=== PATIENT | female | born 1950 | race Caucasian/White ===

== ENCOUNTER 2018-11-26 19:48 | Inpatient (IN) | payer BC ==
[2018-11-26] MEDS ORDERED: ALBUTEROL (0.5% CONCENTRATED) 2.5 MG/0.5 ML VIAL.NEB INH ONE (20:23)
[2018-11-26] MEDS ORDERED: IPRATROPIUM/ALBUTEROL (0.5MG/3MG) NEB INH ONE (20:24)
[2018-11-26] MEDS ORDERED: METHYLPREDNISOLONE PF 125MG/VIAL IVP ONE (20:26)
[2018-11-26 20:39] LABS: ARTERIAL BLD GAS O2 SATURATION 93.6 % (95-98); ARTERIAL BLOOD GAS BASE EXCESS 1.6 mmol/L (-2 - 3); ARTERIAL BLOOD GAS HCO3 28.6 mmol/L (18-23); ARTERIAL BLOOD GAS PCO2 60.4 mmHg (35-48); CARBOXYHEMOGLOBIN 5.6 % (0-1.5); HEMATOCRIT 38.4 % (35.0-47.0); HEMOGLOBIN 11.6 gm/dl (11.6-16.0); MEAN CELL VOLUME 99.2 fl (81-97); MEAN CORPUSCULAR HGB CONC 30.2 g/dl (32-36); PLATELET COUNT 293 K/uL (130-400); RED BLOOD COUNT 3.87 M/uL (3.80-5.40); RED CELL DISTRIBUTION WIDTH 17.9 % (11.5-14.5); WHITE BLOOD COUNT W/O DIFF 14.4 K/uL (4.2-12.2)
[2018-11-26 20:42] LABS: ALLEN TEST PASS
[2018-11-26 20:53] LABS: BLOOD UREA NITROGEN 13 mg/dL (8-23); CREATININE 0.9 mg/dL (0.5-0.9); EST GLOMERULAR FILTRATION RATE > 60 mL/min
[2018-11-26 20:54] LABS: TOTAL PROTEIN 8.4 g/dL (6.6-8.7)
[2018-11-26 20:56] LABS: GLUCOSE,RANDOM 211 mg/dL (74-109)
[2018-11-26 20:58] LABS: ALT/SGPT 9 U/L (<33); AST/SGOT 12 U/L (10.0-35.0)
[2018-11-26 20:59] LABS: ALB/GLOB RATIO 0.8 (1.1-1.8); ALBUMIN 3.8 g/dL (4.0-5.0); ALKALINE PHOSPHATASE 72 U/L (35-104)
[2018-11-26] MEDS ORDERED: ACETAMINOPHEN 1,000 MG/100 ML BTL IVPB ONE (22:10)
[2018-11-26 22:13] LABS: URINE APPEARANCE CLEAR; URINE BILIRUBIN NEGATIVE (NEGATIVE); URINE BLOOD NEGATIVE (NEGATIVE); URINE COLOR YELLOW; URINE GLUCOSE (UA) NEGATIVE (NEGATIVE); URINE KETONE NEGATIVE (NEGATIVE); URINE LEUKOCYTE ESTERASE NEGATIVE (NEGATIVE); URINE NITRITE NEGATIVE (NEGATIVE); URINE PROTEIN TRACE (NEGATIVE); URINE UROBILINOGEN 0.2 E.U./dL (0.20 - 1.00)
[2018-11-26] MEDS ORDERED: 0.9 % SODIUM CHLORIDE 1,000 ML BAG IV ONE (22:24)
[2018-11-26] MEDS ORDERED: AZITHROMYCIN 500 MG in 0.9 % SODIUM CHLORIDE 250ML 250 ML IVPB ONE (22:29)
[2018-11-26] MEDS ORDERED: CEFTRIAXONE 1GM/50ML BAG 1 GM/50 ML BAG IVPB ONE (22:30)
[2018-11-26 22:37] LABS: ARTERIAL BLOOD GAS BASE EXCESS 4.7 mmol/L (-2 - 3); ARTERIAL BLOOD GAS HCO3 30.4 mmol/L (18-23); ARTERIAL BLOOD GAS PCO2 55.1 mmHg (35-48); ARTERIAL BLOOD GAS pH 7.36 (7.35-7.45); CARBOXYHEMOGLOBIN 5.1 % (0-1.5); O2 HEMOGLOBIN 88.7 % vol (94-99)
[2018-11-26 22:38] LABS: ALLEN TEST PASS
--- NOTE | 2018-11-27 00:29 | Emergency Department Record ---
History of Present Illness - General Chief Complaint: Cough Stated Complaint: COUGH,CONFUSION Time Seen by Provider: 11/26/18 20:19 Source: Family Mode of Arrival: Ambulatory Limitations: Altered mental status - History of Present Illness Initial Comments: pt brought in by family because she has been acting confused since the day [employer]. she has a hx of ovarian ca and finished chemo and radiation 4 mos ago. she has been increasingly sob. pt has also had chills and shakes and been sleeping a lot. her sats aupon arrival were in the 70s. she does not wear O2. she still smokes Onset/Timin Severity: Severe Consistency: Constant, Getting worse Improves With: Nothing Known History Of: COPD Context: Recent illness Associated Symptoms: Cough - Related Data Home Medications Medication Instructions Recorded Confirmed Last Taken Alprazolam 1 tab PO BID PRN 11/26/18 11/26/18 Unknown Cyclobenzaprine HCl [Flexeril] 10 mg PO QHS 11/26/18 11/26/18 Unknown Fluoxetine HCl [Prozac] 40 mg PO DAILY 11/26/18 11/26/18 Unknown Ibuprofen [Ibu] 600 mg PO DAILY 11/26/18 11/26/18 Unknown Morphine Sulfate [Morphine Sulfate 60 mg PO BID 11/26/18 11/26/18 Unknown ER] Nifedipine [Nifedipine ER] 60 mg PO DAILY 11/26/18 11/26/18 Unknown Olanzapine 10 mg PO QHS 11/26/18 11/26/18 Unknown Oxycodone HCl/Acetaminophen 1 tab PO Q4H PRN 11/26/18 11/26/18 Unknown [Percocet 5mg/325mg] Quinapril HCl [Accupril] 40 mg PO DAILY 11/26/18 11/26/18 Unknown Trazodone HCl 300 mg PO QHS 11/26/18 11/26/18 Unknown Allergies Allergy/AdvReac Type Severity Reaction Status Date / Time No Known Drug Allergies Allergy Verified 11/26/18 20:01 Travel Screening - Travel/Exposure Within Last 30 Days Have you traveled within the last 30 days?: No - Travel Symptoms Symptom Screening: None Review of Systems Reviewed: No additional complaints except as noted below Constitutional: Reports: As per HPI, Chills, Fever, Weakness. Denies: Malaise, Night sweats, Weight change Eyes: Reports: As per HPI. Denies: Eye discharge, Eye pain, Photophobia, Vision change ENT: Reports: As per HPI, Congestion. Denies: Dental pain, Ear pain, Epistaxis , Hearing loss, Throat pain Respiratory: Reports: As per HPI, Cough, Dyspnea. Denies: Hemoptysis, Stridor, Wheezes Cardiovascular: Reports: As per HPI. Denies: Arrhythmia, Chest pain, Dyspnea on exertion, Edema, Murmurs, Orthopnea, Palpitations, Paroxysmal nocturnal dyspnea, Rheumatic Fever, Syncope Endocrine: Reports: As per HPI. Denies: Fatigue, Heat or cold intolerance, Polydipsia, Polyuria Gastrointestinal: Reports: As per HPI. Denies: Abdominal pain, Constipation, Diarrhea, Hematemesis, Hematochezia, Melena, Nausea, Vomiting Genitourinary: Reports: As per HPI. Denies: Abnormal menses, Discharge, Dyspareunia, Dysuria, Frequency, Hematuria, Incontinence, Retention, Urgency Musculoskeletal: Reports: As per HPI. Denies: Arthralgia, Back pain, Gout, Joint swelling, Myalgia, Neck pain Skin: Reports: As per HPI. Denies: Bruising, Change in color, Change in hair/ nails, Lesions, Pruritus, Rash Neurological: Reports: As per HPI, Confusion. Denies: Abnormal gait, Headache, Numbness, Paresthesias, Seizure, Tingling, Tremors, Vertigo, Weakness Psychiatric: Reports: As per HPI. Denies: Anxiety, Auditory hallucinations, Depression, Homicidal thoughts, Suicidal thoughts, Visual hallucinations Hematological/Lymphatic: Reports: As per HPI. Denies: Anemia, Blood Clots, Easy bleeding, Easy bruising, Swollen glands Past Medical History - SOCIAL HISTORY Smoking Status: Light tobacco smoker (<10/day) Alcohol Use: None Drug Use: None - RESPIRATORY Hx Respiratory Disorders: Yes Hx COPD: Yes - CARDIOVASCULAR Hx Cardio Disorders: Yes Hx Heart Attack: Yes - NEURO Hx Neuro Disorders: No - GI Hx GI Disorders: Yes Hx Reflux: Yes - Hx Genitourinary Disorders: No - ENDOCRINE Hx Endocrine Disorders: No - MUSCULOSKELETAL Hx Musculoskeletal Disorders: Yes - PSYCH Hx Psych Problems: Yes Hx Anxiety: Yes Hx Depression: Yes - HEMATOLOGY/ONCOLOGY Hx Hematology/Oncology Disorders: Yes Hx Cancer: Yes (Ovarian Cancer) Hx Chemotherapy: Yes (08/2018) Hx Radiation Therapy: Yes (08/2018) Family Medical History Any Significant Family History?: Yes Hx Cancer: Father, Brother/Sister Hx Diabetes: Brother/Sister Physical Exam - General General Appearance: Alert, Cooperative, Severe distress, Other (confused) - Head Head exam: Normal inspection - Eye Eye exam: Normal appearance, PERRL, EOMI Pupils: Normal accommodation - ENT ENT exam: Normal exam, Mucous membranes dry, Normal external ear exam, Normal orophraynx Ear exam: Normal external inspection. negative: External canal tenderness Nasal Exam: Normal inspection. negative: Discharge, Sinus tenderness Mouth exam: Normal external inspection, Tongue normal Teeth exam: Normal inspection. negative: Dental caries Throat exam: Normal inspection. negative: Tonsillar erythema, Tonsillar exudate - Neck Neck exam: Normal inspection, Full ROM. negative: Tenderness - Respiratory Respiratory exam: Accessory muscle use, Rales, Respiratory distress, Rhonchi - Cardiovascular Cardiovascular Exam: Normal rhythm, Normal heart sounds, Tachycardia - GI/Abdominal GI/Abdominal exam: Soft, Normal bowel sounds. negative: Tenderness - Rectal Rectal exam: Deferred - exam: Deferred - Extremities Extremities exam: Normal inspection, Full ROM, Normal capillary refill. negative: Tenderness - Back Back exam: Reports: Normal inspection, Full ROM. Denies: Muscle spasm, Rash noted, Tenderness - Neurological Neurological exam: Altered. negative: Normal gait, Oriented X3 - Psychiatric Psychiatric exam: Normal affect, Normal mood - Skin Skin exam: Cyanosis, Dry, Intact Course Vital Signs 11/26/18 11/26/18 11/26/18 19:58 20:42 22:10 Temperature 98.3 F 102.1 F H Pulse Rate 111 H Pulse Rate [ 141 H Pulse Ox Probe] Respiratory 32 H 22 Rate Blood Pressure 92/66 [Left Arm] Pulse Ox 78 L 95 11/26/18 11/26/18 11/26/18 22:24 23:20 23:43 Temperature 97.7 F Pulse Rate Pulse Rate [ 76 65 77 Pulse Ox Probe] Respiratory 24 20 16 Rate Blood Pressure 82/48 99/49 111/63 [Left Arm] Pulse Ox 95 96 95 - Reevaluation(s) Reevaluation #1: 11/27/18 00:36 pt was immediately placed on bipap and given treatment. she gradually improved. her vitals improved. ct shows pneumonia with concern for biliary duct dilatation. pt has no ap. her mentation improved Medical Decision Making - Lab Data Result diagrams: 11/26/18 20:21 11/26/18 20:21 Lab Results 11/26/18 11/26/18 11/26/18 Range/Units 20:21 20:21 20:21 WBC 14.4 H (4.2-12.2) K/uL RBC 3.87 (3.80-5.40) M/uL Hgb 11.6 (11.6-16.0) gm/dl Hct 38.4 (35.0-47.0) % MCV 99.2 H (81-97) fl MCH 30.0 (27-33) pg MCHC 30.2 L (32-36) g/dl RDW 17.9 H (11.5-14.5) % Plt Count 293 (130-400) K/uL MPV 9.0 (7.4-10.4) fl Neutrophils % 84.0 H (47-80) % Eosinophils % Not Reportable Basophils % Not Reportable Lymphocytes 8.0 L (16-45) % Monocytes 8.0 (0-9) % D-Dimer 2.38 H (0-0.59) mg/L FEU Puncture Site Left brachial pCO2 60.4 H (35-48) mmHg pO2 78.0 L (83-108) mmHg HCO3 28.6 H (18-23) mmol/L Oxyhemoglobin 89.0 L (94-99) % vol ABG pH 7.30 L (7.35-7.45) ABG O2 Saturation 93.6 L (95-98) % ABG Base Excess 1.6 (-2 - 3) mmol/L Conner Test Pass Carboxyhemoglobin 5.6 H (0-1.5) % Methemoglobin Not Reportable Total Hemoglobin 11.0 L (11.6-16) g/dl Actual Respiration Rate 20.0 H (10-18) /MIN FiO2 % Sodium (136-145) mmol/L Potassium (3.4-4.5) mmol/L Chloride (98-107) mmol/L Carbon Dioxide (22-29) mmol/L Anion Gap (7-16) BUN (8-23) mg/dL Creatinine (0.5-0.9) mg/dL Estimated GFR mL/min Random Glucose (74-109) mg/dL Lactic Acid (0.5-2.2) mmol/L Calcium (8.8-10.2) mg/dL Total Bilirubin (0.2-1.0) mg/dL AST (10.0-35.0) U/L ALT (<33) U/L Alkaline Phosphatase (35-104) U/L NT-Pro-B Natriuret Pep (<125) pg/mL Total Protein (6.6-8.7) g/dL Albumin (4.0-5.0) g/dL Globulin (1.4-4.8) gm/dL Albumin/Globulin Ratio (1.1-1.8) Urine Color Urine Appearance Urine pH (5.0-8.0) Ur Specific [place] (1.002-1.030) Urine Protein (NEGATIVE) Urine Glucose (UA) (NEGATIVE) Urine Ketones (NEGATIVE) Urine Blood (NEGATIVE) Urine Nitrite (NEGATIVE) Urine Bilirubin (NEGATIVE) Urine Urobilinogen (0.20 - 1.00) E.U./dL Ur Leukocyte Esterase (NEGATIVE) 11/26/18 11/26/18 11/26/18 Range/Units 20:21 22:11 22:35 WBC (4.2-12.2) K/uL RBC (3.80-5.40) M/uL Hgb (11.6-16.0) gm/dl Hct (35.0-47.0) % MCV (81-97) fl MCH (27-33) pg MCHC (32-36) g/dl RDW (11.5-14.5) % Plt Count (130-400) K/uL MPV (7.4-10.4) fl Neutrophils % (47-80) % Eosinophils % Basophils % Lymphocytes (16-45) % Monocytes (0-9) % D-Dimer (0-0.59) mg/L FEU Puncture Site Left brachial pCO2 55.1 H (35-48) mmHg pO2 67.0 L (83-108) mmHg HCO3 30.4 H (18-23) mmol/L Oxyhemoglobin 88.7 L (94-99) % vol ABG pH 7.36 (7.35-7.45) ABG O2 Saturation 93.0 L (95-98) % ABG Base Excess 4.7 H (-2 - 3) mmol/L Conner Test Pass Carboxyhemoglobin 5.1 H (0-1.5) % Methemoglobin Not Reportable Total Hemoglobin 9.0 L (11.6-16) g/dl Actual Respiration Rate 20.0 H (10-18) /MIN FiO2 % Sodium 138 (136-145) mmol/L Potassium 3.4 (3.4-4.5) mmol/L Chloride 95 L (98-107) mmol/L Carbon Dioxide 28.0 (22-29) mmol/L Anion Gap 15.0 (7-16) BUN 13 (8-23) mg/dL Creatinine 0.9 (0.5-0.9) mg/dL Estimated GFR > 60 mL/min Random Glucose 211 H (74-109) mg/dL Lactic Acid (0.5-2.2) mmol/L Calcium 9.5 (8.8-10.2) mg/dL Total Bilirubin 0.40 (0.2-1.0) mg/dL AST 12 (10.0-35.0) U/L ALT 9 (<33) U/L Alkaline Phosphatase 72 (35-104) U/L NT-Pro-B Natriuret Pep 971.50 H (<125) pg/mL Total Protein 8.4 (6.6-8.7) g/dL Albumin 3.8 L (4.0-5.0) g/dL Globulin 4.6 (1.4-4.8) gm/dL Albumin/Globulin Ratio 0.8 L (1.1-1.8) Urine Color Yellow Urine Appearance Clear Urine pH 5.5 (5.0-8.0) Ur Specific [place] 1.025 (1.002-1.030) Urine Protein Trace H (NEGATIVE) Urine Glucose (UA) Negative (NEGATIVE) Urine Ketones Negative (NEGATIVE) Urine Blood Negative (NEGATIVE) Urine Nitrite Negative (NEGATIVE) Urine Bilirubin Negative (NEGATIVE) Urine Urobilinogen 0.2 (0.20 - 1.00) E.U./dL Ur Leukocyte Esterase Negative (NEGATIVE) 11/26/18 Range/Units 22:48 WBC (4.2-12.2) K/uL RBC (3.80-5.40) M/uL Hgb (11.6-16.0) gm/dl Hct (35.0-47.0) % MCV (81-97) fl MCH (27-33) pg MCHC (32-36) g/dl RDW (11.5-14.5) % Plt Count (130-400) K/uL MPV (7.4-10.4) fl Neutrophils % (47-80) % Eosinophils % Basophils % Lymphocytes (16-45) % Monocytes (0-9) % D-Dimer (0-0.59) mg/L FEU Puncture Site pCO2 (35-48) mmHg pO2 (83-108) mmHg HCO3 (18-23) mmol/L Oxyhemoglobin (94-99) % vol ABG pH (7.35-7.45) ABG O2 Saturation (95-98) % ABG Base Excess (-2 - 3) mmol/L Conner Test Carboxyhemoglobin (0-1.5) % Methemoglobin Total Hemoglobin (11.6-16) g/dl Actual Respiration Rate (10-18) /MIN FiO2 % Sodium (136-145) mmol/L Potassium (3.4-4.5) mmol/L Chloride (98-107) mmol/L Carbon Dioxide (22-29) mmol/L Anion Gap (7-16) BUN (8-23) mg/dL Creatinine (0.5-0.9) mg/dL Estimated GFR mL/min Random Glucose (74-109) mg/dL Lactic Acid 1.1 (0.5-2.2) mmol/L Calcium (8.8-10.2) mg/dL Total Bilirubin (0.2-1.0) mg/dL AST (10.0-35.0) U/L ALT (<33) U/L Alkaline Phosphatase (35-104) U/L NT-Pro-B Natriuret Pep (<125) pg/mL Total Protein (6.6-8.7) g/dL Albumin (4.0-5.0) g/dL Globulin (1.4-4.8) gm/dL Albumin/Globulin Ratio (1.1-1.8) Urine Color Urine Appearance Urine pH (5.0-8.0) Ur Specific [place] (1.002-1.030) Urine Protein (NEGATIVE) Urine Glucose (UA) (NEGATIVE) Urine Ketones (NEGATIVE) Urine Blood (NEGATIVE) Urine Nitrite (NEGATIVE) Urine Bilirubin (NEGATIVE) Urine Urobilinogen (0.20 - 1.00) E.U./dL Ur Leukocyte Esterase (NEGATIVE) Critical Care Time Critical Care Time: Yes Total Critical Care Time: 60 Disposition Disposition: Admit Clinical Impression: Hypoxia Pneumonia Qualifiers: Pneumonia type: due to unspecified organism Laterality: right Lung location: lower lobe of lung Qualified Code(s): J18.1 - Lobar pneumonia, unspecified organism Disposition: Still a Patient at [facility] Decision to Admit: Admit from ER Decision to Admit Date: 11/27/18 Decision to Admit Time: 00:43 Quality - Quality Measures Quality Measures: N/A - Blood Pressure Screening Does Patient Have Any of the Following: No Blood Pressure Classification: Normal BP Reading Systolic Measurement: 111 Diastolic Measurement: 63 Screening for High Blood Pressure: < Normal BP, F/U Not Required > [G8783]
[2018-11-27] MEDS ORDERED: CEFTRIAXONE SODIUM 1 GM in 0.9 % SODIUM CHLORIDE 100ML 100 ML IVPB SCH (01:31)
[2018-11-27] MEDS ORDERED: ACETAMINOPHEN 500 MG TABLET PO PRN (01:31)
[2018-11-27] MEDS ORDERED: ALPRAZOLAM 1 MG TAB PO PRN (01:31)
[2018-11-27] MEDS ORDERED: OXYCODONE HCL/APAP 5MG/325MG TABLET PO PRN (01:31)
[2018-11-27] MEDS ORDERED: ALBUTEROL SULFATE (0.083%) 2.5 MG/3 ML NEB INH PRN (01:31)
[2018-11-27] MEDS ORDERED: MORPHINE SULFATE 30MG TABLET.ER PO SCH (02:15)
[2018-11-27] MEDS ORDERED: 0.9 % SODIUM CHLORIDE 1,000 ML BAG IV ONE (03:15)
[2018-11-27 06:39] LABS: HEMATOCRIT 37.4 % (35.0-47.0); HEMOGLOBIN 11.4 gm/dl (11.6-16.0); MEAN CELL VOLUME 98.9 fl (81-97); MEAN CORPUSCULAR HGB CONC 30.5 g/dl (32-36); MEAN PLATELET VOLUME 9.1 fl (7.4-10.4); PLATELET COUNT 245 K/uL (130-400); RED BLOOD COUNT 3.78 M/uL (3.80-5.40); RED CELL DISTRIBUTION WIDTH 17.6 % (11.5-14.5)
[2018-11-27 06:41] LABS: MEAN CORPUSCULAR HEMOGLOBIN 30.1 pg (27-33)
[2018-11-27 06:59] LABS: ALB/GLOB RATIO 0.8 (1.1-1.8); ALBUMIN 3.7 g/dL (4.0-5.0); ALKALINE PHOSPHATASE 72 U/L (35-104); ALT/SGPT 10 U/L (<33); AST/SGOT 12 U/L (10.0-35.0); BLOOD UREA NITROGEN 14 mg/dL (8-23); CREATININE 0.7 mg/dL (0.5-0.9); EST GLOMERULAR FILTRATION RATE > 60 mL/min; GLUCOSE,RANDOM 156 mg/dL (74-109); TOTAL PROTEIN 8.1 g/dL (6.6-8.7)
--- NOTE | 2018-11-27 07:59 | CT SCAN REPORT ---
EXAM: CT OF THE HEAD WITHOUT CONTRAST HISTORY: CONFUSION. TECHNIQUE: Standard CT imaging of the head was obtained without intravenous contrast. Comparison: None. Hand dominance: Unknown. FINDINGS: The ventricles and sulci are normal in size. No intracranial hemorrhage, extraaxial fluid collection, or large acute infarct is identified. No significant mass effect or midline shift. The basal cisterns are maintained. The visualized paranasal sinuses and mastoid air cells are clear. IMPRESSION: NEGATIVE NONCONTRAST HEAD CT. JOB NUMBER: [id number] [facility]
--- NOTE | 2018-11-27 08:11 | CT ANGIOGRAM REPORT ---
EXAM: CTA OF THE CHEST WITH CONTRAST HISTORY: SHORTNESS OF BREATH. TECHNIQUE: Standard CT angiography of the chest was obtained after intravenous contrast. Coronal and sagittal reformations are provided and MIP reformations are also created. Comparison: None. 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 No filling defect is identified within the pulmonary arteries. There is a right chest wall amando-cath in place. There are multiple enlarged mediastinal lymph nodes measuring up to 16 mm in the lower right paratracheal region and 22 mm in the subcarinal region. There are also enlarged right hilar lymph nodes measuring up to 17 mm. There is a trace right pleural effusion. There is severe centrilobular emphysema. There is extensive mucous plugging in the right lower lobe. There is consolidation of the right lower lobe dependently with areas of nonenhancement which may represent areas of necrosis. No destructive osseous lesion is identified. There is severe intrahepatic bowel like dilatation within the visualized aspects of the liver. There is also a large amount of stool in the visualized colon. IMPRESSION: 1. NO EVIDENCE FOR A PULMONARY EMBOLUS. 2. RIGHT LOWER LOBE CONSOLIDATION WHICH MAY REPRESENT PNEUMONIA OR ASPIRATION GIVEN THE EXTENSIVE RIGHT LOWER LOBE MUCOUS PLUGGING. THERE ARE AREAS OF NONENHANCEMENT WITHIN THE CONSOLIDATION WHICH MAY REPRESENT AREAS OF NECROSIS. FOLLOW-UP CHEST CT IS RECOMMENDED IN THREE MONTHS TO INSURE RESOLUTION AN UNDERLYING MASS IS NOT EXCLUDED. 3. MARKED RIGHT HILAR AND MEDIASTINAL ADENOPATHY, WHICH CAN BE FURTHER ASSESSED ON FOLLOW-UP CHEST CT. 4. SEVERE EMPHYSEMA. 5. SEVERE INTRAHEPATIC BOWEL DUCT DILATATION. THERE ARE NO PRIORS AVAILABLE FOR COMPARISON. THIS COULD BE FURTHER ASSESSED WITH CONTRAST ENHANCED CT OF THE ABDOMEN AND PELVIS. 6. LARGE COLONIC STOOL BURDEN. JOB NUMBER: [id number] [facility]
[2018-11-27] MEDS ORDERED: OXYCODONE HCL 5 MG TABLET PO PRN (09:56)
[2018-11-27] MEDS: IBUPROFEN 600 MG TABLET PO SCH (10:00)
[2018-11-27] MEDS: 0.9 % SODIUM CHLORIDE 1000ML 1,000 ML IV PRN (10:00)
[2018-11-27] MEDS: FLUOXETINE HCL 20 MG CAPSULE PO SCH (10:00)
[2018-11-27] MEDS: QUINAPRIL HCL 10 MG TABLET PO SCH (10:01)
[2018-11-27] MEDS: MORPHINE SULFATE 30MG TABLET.ER PO SCH ×2 (10:02→21:02)
[2018-11-27] MEDS: NIFEDIPINE 30 MG TAB.ER.24 PO SCH (10:03)
[2018-11-27] MEDS: IPRATROPIUM/ALBUTEROL (0.5MG/3MG) NEB INH PRN (11:20)
[2018-11-27] MEDS: RANITIDINE HCL 150 MG TABLET PO SCH ×2 (12:32→21:03)
[2018-11-27] MEDS: METHYLPREDNISOLONE PF 125MG/VIAL IVP SCH (12:32)
[2018-11-27 13:35] LABS: INFLUENZA A NEGATIVE (NEGATIVE); INFLUENZA B NEGATIVE (NEGATIVE)
--- NOTE | 2018-11-27 14:46 | History & Physical ---
History of Present Illness - Date of Service Date of Service for History & Physical: 11/27/18 - History of Present Illness Admitting Diagnosis: pneumonia, hypoxia, confusion, enlarged hepatic duct History of Present Illness: Alexia Sánchez is a 68 y/o female brought to ED by family for confusion and increased fatigue, chills, increased shortness of breath. She was in her usual state of health prior to that. She has been living with her son and DIL for the past year as she has been actively treated for ovarian cancer. She had her last treatment 4 months ago and is in remission. Past medical history history includes current every day smoker, COD, [place]- unable to recall year, GERD, bipolar disorder, chronic low back pain s/p lumbar laminectomy in 1988, ovarian cancer s/p total hysterectomy and chemo/radiation. Upon arrival to ED SPO2 70% RA, RR 32 and was placed on BiPAP for about an hour with significant improvement. Tmax in ED 102.1 rectally and was given Afirmiv. ABGs showed acute respiratory acidosis with improvement to a compensated state after BiPAP use. WBC 14.4, neutrophils 92, Hgb 11.6. ProBNP 971.50. D-dimer 2.38. Procalcitonin 0.770. Troponin <0.010. EKG- sinus tach, borderline ST depression. Head CT negative. Chest CTA negative for PE, + for RLL pneumonia and RLL mucus plugging with a possible area of necrosis, severe intrahepatic bowel duct dilation. Outside hospital records reviewed, MRI abdomen done by her oncologist 10/13/18 2nd ovarian CA showed dilation of CBD due to obstructive process and calcification of distal CBD at the level of the pancreatic head, pancreatic atrophy. She was stable, on 3L O2 upon transfer to the floor. 11/27/18- overnight was hypotensive, given fluid bolus with improvement in BP. Is resting in bed comfortably, is A&O x 3 but is disoriented to the events of the past 24-36 hours. Denies any RAHAT, chest pain, chills. Has been afebrile. Family reports she lives independently in [place] but has stayed with them due to cancer treatment in [place]. Has cut down on her smoking to only 3 cigarettes per day as well as her beer intake from a case per day to 3 per day. PCP- Dr Bell- [facility]: Dr Red Travel Screening - Travel/Exposure Within Last 30 Days Have you traveled within the last 30 days?: No - Travel/Exposure Within Last Year Have you traveled outside the [place] in the last year?: No - Additonal Travel Details Have you been exposed to anyone with a communicable illness?: No - Travel Symptoms Symptom Screening: Fever (Subjective), Weakness, Chills Review of Systems Constitutional: Reports: As per HPI, Weakness. Denies: Chills, Fever, Malaise, Night sweats, Weight change Eyes: Reports: As per HPI. Denies: Eye discharge, Eye pain, Photophobia, Vision change ENT: Reports: As per HPI, Congestion. Denies: Dental pain, Ear pain, Epistaxis , Hearing loss, Throat pain Respiratory: Reports: As per HPI, Cough. Denies: Dyspnea, Hemoptysis, Stridor, Wheezes Cardiovascular: Reports: As per HPI. Denies: Arrhythmia, Chest pain, Dyspnea on exertion, Edema, Murmurs, Orthopnea, Palpitations, Paroxysmal nocturnal dyspnea, Rheumatic Fever, Syncope Endocrine: Reports: As per HPI. Denies: Fatigue, Heat or cold intolerance, Polydipsia, Polyuria Gastrointestinal: Reports: As per HPI. Denies: Abdominal pain, Constipation, Diarrhea, Hematemesis, Hematochezia, Melena, Nausea, Vomiting Genitourinary: Reports: As per HPI. Denies: Abnormal menses, Discharge, Dyspareunia, Dysuria, Frequency, Hematuria, Incontinence, Retention, Urgency Musculoskeletal: Reports: As per HPI. Denies: Arthralgia, Back pain, Gout, Joint swelling, Myalgia, Neck pain Skin: Reports: As per HPI. Denies: Bruising, Change in color, Change in hair/ nails, Lesions, Pruritus, Rash Neurological: Reports: As per HPI, Confusion. Denies: Abnormal gait, Headache, Numbness, Paresthesias, Seizure, Tingling, Tremors, Vertigo, Weakness Psychiatric: Reports: As per HPI. Denies: Anxiety, Auditory hallucinations, Depression, Homicidal thoughts, Suicidal thoughts, Visual hallucinations Hematological/Lymphatic: Reports: As per HPI. Denies: Anemia, Blood Clots, Easy bleeding, Easy bruising, Swollen glands Past Medical History - SOCIAL HISTORY Smoking Status: Light tobacco smoker (<10/day) Alcohol Use: None Drug Use: None - RESPIRATORY Hx Respiratory Disorders: Yes Hx COPD: Yes - CARDIOVASCULAR Hx Cardio Disorders: Yes Hx Hypertension: Yes - NEURO Hx Neuro Disorders: No - GI Hx GI Disorders: Yes Hx Reflux: Yes - Hx Genitourinary Disorders: No - ENDOCRINE Hx Endocrine Disorders: No - MUSCULOSKELETAL Hx Musculoskeletal Disorders: Yes - PSYCH Hx Psych Problems: Yes Hx Anxiety: Yes Hx Depression: Yes - HEMATOLOGY/ONCOLOGY Hx Hematology/Oncology Disorders: Yes Hx Cancer: Yes (Ovarian Cancer) Hx Chemotherapy: Yes (08/2018) Hx Radiation Therapy: Yes (08/2018) Family Medical History Any Significant Family History?: Yes Hx Cancer: Father, Brother/Sister Hx Diabetes: Brother/Sister H&P Meds/Allergies - Allergies Allergies: Allergies Allergy/AdvReac Type Severity Reaction Status Date / Time No Known Drug Allergies Allergy Verified 11/26/18 20:01 - Home Medications Home Medications Medication Instructions Recorded Confirmed Last Taken Alprazolam 1 tab PO BID PRN 11/26/18 11/26/18 Unknown Cyclobenzaprine HCl [Flexeril] 10 mg PO QHS 11/26/18 11/26/18 Unknown Fluoxetine HCl [Prozac] 40 mg PO DAILY 11/26/18 11/26/18 Unknown Ibuprofen [Ibu] 600 mg PO DAILY 11/26/18 11/26/18 Unknown Morphine Sulfate [Morphine Sulfate 60 mg PO BID 11/26/18 11/26/18 Unknown ER] Nifedipine [Nifedipine ER] 60 mg PO DAILY 11/26/18 11/26/18 Unknown Olanzapine 10 mg PO QHS 11/26/18 11/26/18 Unknown Quinapril HCl [Accupril] 40 mg PO DAILY 11/26/18 11/26/18 Unknown Trazodone HCl 300 mg PO QHS 11/26/18 11/26/18 Unknown Oxycodone HCl 15 mg PO Q4H PRN 11/27/18 11/27/18 Unknown Ranitidine HCl 150 mg PO BID 11/27/18 11/27/18 Unknown - Active Medications Active Medications: Current Medications Acetaminophen (Tylenol 500mg Tab) 1,000 mg PO Q6H PRN PRN Reason: PAIN - MILD(1-4)/FEVER Albuterol Sulfate (Albuterol Sulfate) 2.5 mg INH RESP.Q4H PRN PRN Reason: DIFFICULTY IN BREATHING Albuterol/Ipratropium (Duoneb) 3 ml INH RESP.Q6H PRN PRN Reason: WHEEZING Last Admin: 11/27/18 11:20 Dose: 3 ml Alprazolam (Xanax) 1 mg PO BID PRN PRN Reason: ANXIETY Fluoxetine HCl (Prozac) 40 mg PO DAILY [facility] Last Admin: 11/27/18 10:00 Dose: 40 mg Sodium Chloride () 1,000 mls @ 100 mls/hr IV .Q10H PRN PRN Reason: LARGE VOLUME IV CEFTRIAXONE 1GM/50ML BAG (Ceftriaxone 1 Gm-D5w Bag) 1 gm in 50 mls @ 100 mls/ hr IVPB Q24H [facility] Ibuprofen (Motrin 600mg) 600 mg PO DAILY [facility] Last Admin: 11/27/18 10:00 Dose: 600 mg Methylprednisolone Sodium Succinate (Solu-Medrol) 125 mg IVP DAILY [facility] Last Admin: 11/27/18 12:32 Dose: 125 mg Morphine Sulfate () 60 mg PO Q12H [facility] Last Admin: 11/27/18 10:02 Dose: 60 mg Nifedipine (Procardia Xl) 60 mg PO DAILY [facility] Last Admin: 11/27/18 10:03 Dose: 60 mg Olanzapine (Zyprexa) 10 mg PO QHS [facility] Oxycodone HCl (Oxy Ir) 15 mg PO Q4H PRN PRN Reason: PAIN - MOD TO SEVERE (5-10) Quinapril HCl (Accupril) 40 mg PO DAILY [facility] Last Admin: 11/27/18 10:01 Dose: 40 mg Ranitidine HCl (Zantac) 150 mg PO BID [facility] Last Admin: 11/27/18 12:32 Dose: 150 mg Trazodone HCl (Desyrel) 300 mg PO QHS [facility] Physical Exam - Vital Signs Vital Signs: Vital Signs - Last 24 Hrs Temp Pulse Pulse Pulse Resp BP BP 11/27/18 11:20 89 16 11/27/18 10:00 97.3 F L 83 16 104/61 11/27/18 09:00 16 11/27/18 08:17 88 18 11/27/18 06:00 97.5 F L 64 16 95/49 11/27/18 03:10 97.6 F 60 20 78/59 11/27/18 02:00 73 20 84/46 11/27/18 01:30 69 18 79/44 11/27/18 01:15 97.6 F 67 18 86/47 11/27/18 01:02 61 24 84/44 11/26/18 23:43 97.7 F 77 16 111/63 11/26/18 23:20 65 20 99/49 11/26/18 22:24 76 24 82/48 11/26/18 22:10 102.1 F H 11/26/18 20:42 111 H 22 11/26/18 19:58 98.3 F 141 H 32 H 92/66 Pulse Ox 11/27/18 11:20 99 11/27/18 10:00 96 11/27/18 09:00 11/27/18 08:17 94 L 11/27/18 06:00 92 L 11/27/18 03:10 85 L 11/27/18 02:00 89 L 11/27/18 01:30 93 L 11/27/18 01:15 87 L 11/27/18 01:02 94 L 11/26/18 23:43 95 11/26/18 23:20 96 11/26/18 22:24 95 11/26/18 22:10 11/26/18 20:42 95 11/26/18 19:58 78 L - General General Appearance: Alert, Oriented x3, Cooperative, Other (disoriented) - Head Head exam: Normal inspection - Eye Eye exam: Normal appearance, PERRL, EOMI Pupils: Normal accommodation - ENT ENT exam: Normal exam, Mucous membranes dry, Normal external ear exam, Normal orophraynx Ear exam: Normal external inspection. negative: External canal tenderness Nasal Exam: Normal inspection. negative: Discharge, Sinus tenderness Mouth exam: Normal external inspection, Tongue normal Teeth exam: Normal inspection. negative: Dental caries Throat exam: Normal inspection. negative: Tonsillar erythema, Tonsillar exudate - Neck Neck exam: Normal inspection, Full ROM. negative: Tenderness - Respiratory Respiratory exam: Normal lung sounds bilaterally. negative: Accessory muscle use, Rales, Rhonchi - Cardiovascular Cardiovascular Exam: Normal rhythm, Normal heart sounds Peripheral Pulses: 2+: Dorsalis Pedis (R), Dorsalis Pedis (L) - GI/Abdominal GI/Abdominal exam: Soft, Normal bowel sounds. negative: Tenderness - Rectal Rectal exam: Deferred - exam: Deferred - Extremities Extremities exam: Normal inspection, Full ROM, Normal capillary refill. negative: Tenderness - Back Back exam: Reports: Normal inspection, Full ROM. Denies: Muscle spasm, Rash noted, Tenderness - Neurological Neurological exam: Alert, CN II-XII intact, Oriented X3. negative: Altered, Normal gait - Psychiatric Psychiatric exam: Normal affect, Normal mood - Skin Skin exam: Dry, Intact. negative: Cyanosis Results - Labs Result Diagrams: 11/27/18 06:20 11/27/18 06:20 Labs Last 24 Hours: Laboratory Results - last 24 hr 11/26/18 11/26/18 11/26/18 20:21 20:21 20:21 WBC 14.4 H RBC 3.87 Hgb 11.6 Hct 38.4 MCV 99.2 H MCH 30.0 MCHC 30.2 L RDW 17.9 H Plt Count 293 MPV 9.0 Neutrophils % 84.0 H Eosinophils % Not Reportable Basophils % Not Reportable Lymphocytes 8.0 L Monocytes 8.0 Basophils D-Dimer 2.38 H Puncture Site Left brachial pCO2 60.4 H pO2 78.0 L HCO3 28.6 H Oxyhemoglobin 89.0 L ABG pH 7.30 L ABG O2 Saturation 93.6 L ABG Base Excess 1.6 Conner Test Pass Carboxyhemoglobin 5.6 H Methemoglobin Not Reportable Total Hemoglobin 11.0 L Actual Respiration Rate 20.0 H FiO2 Sodium Potassium Chloride Carbon Dioxide Anion Gap BUN Creatinine Estimated GFR Random Glucose Lactic Acid Calcium Total Bilirubin AST ALT Alkaline Phosphatase Troponin T NT-Pro-B Natriuret Pep Total Protein Albumin Globulin Albumin/Globulin Ratio Procalcitonin Urine Color Urine Appearance Urine pH Ur Specific Loa Urine Protein Urine Glucose (UA) Urine Ketones Urine Blood Urine Nitrite Urine Bilirubin Urine Urobilinogen Ur Leukocyte Esterase Influenza Type A Ag Influenza Type B Ag 11/26/18 11/26/18 11/26/18 20:21 22:11 22:35 WBC RBC Hgb Hct MCV MCH MCHC RDW Plt Count MPV Neutrophils % Eosinophils % Basophils % Lymphocytes Monocytes Basophils D-Dimer Puncture Site Left brachial pCO2 55.1 H pO2 67.0 L HCO3 30.4 H Oxyhemoglobin 88.7 L ABG pH 7.36 ABG O2 Saturation 93.0 L ABG Base Excess 4.7 H Conner Test Pass Carboxyhemoglobin 5.1 H Methemoglobin Not Reportable Total Hemoglobin 9.0 L Actual Respiration Rate 20.0 H FiO2 Sodium 138 Potassium 3.4 Chloride 95 L Carbon Dioxide 28.0 Anion Gap 15.0 BUN 13 Creatinine 0.9 Estimated GFR > 60 Random Glucose 211 H Lactic Acid Calcium 9.5 Total Bilirubin 0.40 AST 12 ALT 9 Alkaline Phosphatase 72 Troponin T NT-Pro-B Natriuret Pep 971.50 H Total Protein 8.4 Albumin 3.8 L Globulin 4.6 Albumin/Globulin Ratio 0.8 L Procalcitonin Urine Color Yellow Urine Appearance Clear Urine pH 5.5 Ur Specific Loa 1.025 Urine Protein Trace H Urine Glucose (UA) Negative Urine Ketones Negative Urine Blood Negative Urine Nitrite Negative Urine Bilirubin Negative Urine Urobilinogen 0.2 Ur Leukocyte Esterase Negative Influenza Type A Ag Influenza Type B Ag 11/26/18 11/27/18 11/27/18 22:48 06:20 06:20 WBC 9.0 RBC 3.78 L Hgb 11.4 L Hct 37.4 MCV 98.9 H MCH 30.1 MCHC 30.5 L RDW 17.6 H Plt Count 245 MPV 9.1 Neutrophils % 92.0 H Eosinophils % Not Reportable Basophils % Not Reportable Lymphocytes 6.0 L Monocytes 1.0 Basophils 1.0 D-Dimer Puncture Site pCO2 pO2 HCO3 Oxyhemoglobin ABG pH ABG O2 Saturation ABG Base Excess Conner Test Carboxyhemoglobin Methemoglobin Total Hemoglobin Actual Respiration Rate FiO2 Sodium 137 Potassium 3.8 Chloride 100 Carbon Dioxide 27.0 Anion Gap 10.0 BUN 14 Creatinine 0.7 Estimated GFR > 60 Random Glucose 156 H Lactic Acid 1.1 Calcium 9.2 Total Bilirubin 0.20 AST 12 ALT 10 Alkaline Phosphatase 72 Troponin T NT-Pro-B Natriuret Pep Total Protein 8.1 Albumin 3.7 L Globulin 4.4 Albumin/Globulin Ratio 0.8 L Procalcitonin Urine Color Urine Appearance Urine pH Ur Specific Loa Urine Protein Urine Glucose (UA) Urine Ketones Urine Blood Urine Nitrite Urine Bilirubin Urine Urobilinogen Ur Leukocyte Esterase Influenza Type A Ag Influenza Type B Ag 11/27/18 11/27/18 06:20 12:49 WBC RBC Hgb Hct MCV MCH MCHC RDW Plt Count MPV Neutrophils % Eosinophils % Basophils % Lymphocytes Monocytes Basophils D-Dimer Puncture Site pCO2 pO2 HCO3 Oxyhemoglobin ABG pH ABG O2 Saturation ABG Base Excess Conner Test Carboxyhemoglobin Methemoglobin Total Hemoglobin Actual Respiration Rate FiO2 Sodium Potassium Chloride Carbon Dioxide Anion Gap BUN Creatinine Estimated GFR Random Glucose Lactic Acid Calcium Total Bilirubin AST ALT Alkaline Phosphatase Troponin T < 0.010 NT-Pro-B Natriuret Pep Total Protein Albumin Globulin Albumin/Globulin Ratio Procalcitonin 0.770 Urine Color Urine Appearance Urine pH Ur Specific Loa Urine Protein Urine Glucose (UA) Urine Ketones Urine Blood Urine Nitrite Urine Bilirubin Urine Urobilinogen Ur Leukocyte Esterase Influenza Type A Ag Negative Influenza Type B Ag Negative VTE H&P Assessment - Risk for VTE Risk for VTE: Yes Risk Level: Moderate Risk Assessment Date: 11/27/18 Risk Assessment Time: 14:47 VTE Orders Placed or Will Be Placed: Yes Plan - Inpatient Certification Inpatient Certification: Admit to inpatient care: Based on my medical assessment, after consideration of patient's risk factors (age, co-morbidities and patient presenting symptoms and acuity), I expect that this patient will remain in the hospital greater than or equal to two midnights and that the services needed warrant inpatient care because: Patient Risk Factors: [respiratory failure, acute mental status changes] Estimated length of stay: [72-96 hrs] The patient may reasonably be expected to be discharged or transferred to a hospital within 96 hours after admission to [facility]. Services needed: [nursing] Post hospital care (if known): [] I certify that my determination is in accordance with my understanding of Medicare requirements for reasonable and necessary inpatient services. 11/27/18 14:48 - Detailed Diagnosis and Plan (1) Pneumonia Current Visit: Yes Status: Acute Qualifiers: Pneumonia type: due to unspecified organism Laterality: right Lung location: lower lobe of lung Qualified Code(s): J18.1 - Lobar pneumonia, unspecified organism Base Code: J18.9 - PNEUMONIA, UNSPECIFIED ORGANISM Comment: 11/27/18 - CTA chest- RLL pneumonia, possible necrosis, recommend repeat Chest CTA in 3 months - Duoneb Q 6r WA, Albuterol 2.5mg Q 4hr PRN - Rocephin 1gm BID - Azithromycin 50mg IV Q 24 hrs - O2 to keep SPO2> 88%- currently 94% on 4L, in no respiratory distress - Solumedrol 125mg IVP QD - BC x2 pending - Procalcitonin in am - WBC normalized this am, neutrophils 92 (2) Hypoxia Current Visit: Yes Status: Acute Base Code: R09.02 - HYPOXEMIA Comment: 08/07 - See above - Significant improvement ater BiPAP application in the ED, has not required since admission - O2 to keep SPO2>88% - Influenza PCR pending (3) Chronic pain Current Visit: Yes Status: Acute Base Code: G89.29 - OTHER CHRONIC PAIN Comment: 11/27/18 - Chronic low back pain, s/p lumbar laminectomy in 1988, recent chemo/radiation for ovarian cancer - Oxy IR 15mg Q 4hr PRN per home dosing - Morphine Sulfate 60mg Q 12 hr per home dosing (4) HTN (hypertension) Current Visit: Yes Status: Acute Base Code: I10 - ESSENTIAL (PRIMARY) HYPERTENSION Comment: 11/27/18 - Hypotensive overnight, improved after 250ml fluid bolus - Nursing to hold Accupril and Procardia if SBP<100 - (5) DVT prophylaxis Current Visit: Yes Status: Acute Base Code: [id number] - Comment: 11/27/18 - Nursing to encourage ambulation - Lovenox 40mg SQ QD (6) Full code status Current Visit: Yes Status: Acute Base Code: Z78.9 - OTHER SPECIFIED HEALTH STATUS Comment: 11/27/18
[2018-11-27] MEDS: AZITHROMYCIN 500 MG in 0.9 % SODIUM CHLORIDE 250ML 250 ML IVPB SCH (17:06)
[2018-11-27] MEDS: CEFTRIAXONE 1GM/50ML BAG 1 GM/50 ML BAG IVPB SCH (18:48)
[2018-11-27] MEDS: OLANZAPINE 5MG TABLET PO SCH (21:03)
[2018-11-27] MEDS: TRAZODONE 50 MG TABLET PO SCH (21:03)
[2018-11-27] MEDS ORDERED: CEFTRIAXONE 1GM/50ML BAG 1 GM/50 ML BAG IVPB SCH (22:00)
[2018-11-28] MEDS: CEFTRIAXONE 1GM/50ML BAG 1 GM/50 ML BAG IVPB SCH ×2 (05:43→18:19)
[2018-11-28] MEDS: QUINAPRIL HCL 10 MG TABLET PO SCH (10:24)
[2018-11-28] MEDS: IBUPROFEN 600 MG TABLET PO SCH (10:27)
[2018-11-28] MEDS: NIFEDIPINE 30 MG TAB.ER.24 PO SCH (10:28)
[2018-11-28] MEDS: FLUOXETINE HCL 20 MG CAPSULE PO SCH (10:29)
[2018-11-28] MEDS: RANITIDINE HCL 150 MG TABLET PO SCH ×2 (10:30→21:26)
[2018-11-28] MEDS: MORPHINE SULFATE 30MG TABLET.ER PO SCH ×2 (10:33→21:26)
[2018-11-28] MEDS: ENOXAPARIN 40 MG/0.4 ML SYR SQ SCH (10:34)
[2018-11-28] MEDS: METHYLPREDNISOLONE PF 125MG/VIAL IVP SCH (11:42)
[2018-11-28] MEDS: AZITHROMYCIN 500 MG in 0.9 % SODIUM CHLORIDE 250ML 250 ML IVPB SCH (16:27)
[2018-11-28] MEDS: IPRATROPIUM/ALBUTEROL (0.5MG/3MG) NEB INH PRN (17:20)
[2018-11-28 17:58] LABS: URINE APPEARANCE CLEAR; URINE BILIRUBIN NEGATIVE (NEGATIVE); URINE BLOOD TRACE-I (NEGATIVE); URINE COLOR YELLOW; URINE GLUCOSE (UA) NEGATIVE (NEGATIVE); URINE KETONE NEGATIVE (NEGATIVE); URINE LEUKOCYTE ESTERASE NEGATIVE (NEGATIVE); URINE NITRITE NEGATIVE (NEGATIVE); URINE PROTEIN NEGATIVE (NEGATIVE); URINE UROBILINOGEN 0.2 E.U./dL (0.20 - 1.00)
[2018-11-28 18:11] LABS: URINE BACTERIA NONE SEEN; URINE EPITHELIAL CELLS 0 - 2 (FEW); URINE RBC NONE SEEN (NONE SEEN); URINE WBC NONE SEEN (0-2/hpf)
[2018-11-28] MEDS: 0.9 % SODIUM CHLORIDE 1000ML 1,000 ML IV PRN (18:30)
[2018-11-28] MEDS ORDERED: 0.9 % SODIUM CHLORIDE 1000ML 1,000 ML IV ONE (18:48)
[2018-11-28] MEDS: PREDNISONE 20 MG TAB PO SCH (21:25)
[2018-11-28] MEDS: OLANZAPINE 5MG TABLET PO SCH (21:25)
[2018-11-28] MEDS: TRAZODONE 50 MG TABLET PO SCH (21:26)
[2018-11-29] MEDS: CEFTRIAXONE 1GM/50ML BAG 1 GM/50 ML BAG IVPB SCH (06:01)
[2018-11-29] MEDS ORDERED: AZITHROMYCIN 500 MG TABLET PO SCH (10:00)
--- NOTE | 2018-11-29 10:26 | Discharge Note ---
VTE H&P Assessment - Risk for VTE Risk for VTE: Yes Risk Level: Moderate Risk Assessment Date: 11/27/18 Risk Assessment Time: 14:47 VTE Orders Placed or Will Be Placed: Yes Discharge Medications - Discharge Medications Prescriptions: Azithromycin [Zithromax] 500 mg PO DAILY #8 tab Cephalexin [Keflex] 500 mg PO QID #40 cap Prednisone [Prednisone 10Mg] 10 mg PO ASDIR #30 tab Home Medications: Ambulatory Orders Alprazolam 1 tab PO BID PRN 11/26/18 [Last Taken Unknown] Cyclobenzaprine HCl [Flexeril] 10 mg PO QHS 11/26/18 [Last Taken Unknown] Fluoxetine HCl [Prozac] 40 mg PO DAILY 11/26/18 [Last Taken Unknown] Ibuprofen [Ibu] 600 mg PO DAILY 11/26/18 [Last Taken Unknown] Morphine Sulfate [Morphine Sulfate ER] 60 mg PO BID 11/26/18 [Last Taken Unknown ] Nifedipine [Nifedipine ER] 60 mg PO DAILY 11/26/18 [Last Taken Unknown] Olanzapine 10 mg PO QHS 11/26/18 [Last Taken Unknown] Quinapril HCl [Accupril] 40 mg PO DAILY 11/26/18 [Last Taken Unknown] Trazodone HCl 300 mg PO QHS 11/26/18 [Last Taken Unknown] Oxycodone HCl 15 mg PO Q4H PRN 11/27/18 [Last Taken Unknown] Ranitidine HCl 150 mg PO BID 11/27/18 [Last Taken Unknown] Azithromycin [Zithromax] 500 mg PO DAILY #8 tab 11/29/18 [Last Taken Unknown] Cephalexin [Keflex] 500 mg PO QID #40 cap 11/29/18 [Last Taken Unknown] Prednisone [Prednisone 10Mg] 10 mg PO ASDIR #30 tab 11/29/18 [Last Taken Unknown ] Discharge Note - Date Date of Discharge Note: 11/29/18 Disposition: Home, Self-Care Condition: (2) Stable Additional Instructions: follow up with family in one week and if not able to get back to [place] she would follow up with Dr Eden on Tuesday at 10:00 am in my office Patient needs oxygen 2 liters at rest and 4 liters with ambulation will set up home oxygen. Prescriptions: Azithromycin [Zithromax] 500 mg PO DAILY #8 tab Cephalexin [Keflex] 500 mg PO QID #40 cap Prednisone [Prednisone 10Mg] 10 mg PO ASDIR #30 tab Forms: Patient Portal Access
[2018-11-29] MEDS: NIFEDIPINE 30 MG TAB.ER.24 PO SCH (11:26)
[2018-11-29] MEDS: FLUOXETINE HCL 20 MG CAPSULE PO SCH (11:26)
[2018-11-29] MEDS: QUINAPRIL HCL 10 MG TABLET PO SCH (11:27)
[2018-11-29] MEDS: RANITIDINE HCL 150 MG TABLET PO SCH (11:27)
[2018-11-29] MEDS: PREDNISONE 20 MG TAB PO SCH (11:28)
[2018-11-29] MEDS: IBUPROFEN 600 MG TABLET PO SCH (11:28)
[2018-11-29] MEDS: ENOXAPARIN 40 MG/0.4 ML SYR SQ SCH (11:30)
[2018-11-29] MEDS: MORPHINE SULFATE 30MG TABLET.ER PO SCH (11:30)
--- NOTE | 2018-11-30 08:20 | Discharge Summary ---
DATE: 11/29/2018 at 10:59 a.m. DISCHARGE DIAGNOSES: 1. Right lower lobe pneumonia. 2. Chronic obstructive pulmonary disease. 3. Ovarian cancer. 4. Recent chemotherapy finished 3-4 weeks ago. She states that she is remission. She is being treated at [facility] in the oncology group. 5. Tobacco use. 6. Anxiety disorder. 7. Chronic low back pain and on narcotics. 8. Gastroesophageal reflux disease. 9. Hypertension. ATTENDING PHYSICIAN: Romario Eden DO REASON FOR HOSPITALIZATION: This 68-year-old female presented to the emergency department confused, coughing, chills, and shakes. Evaluated in the emergency department by Dr. Knight and admitted to the hospital for pneumonia, right lower lobe pneumonia, for IV antibiotics and oxygen therapy and further evaluation. SIGNIFICANT FINDINGS: D-dimer was elevated with a value of 2.38. CTA of the chest was done which showed no PEs and an infiltrate in the right lower lobe. Her white count initially was 14,400, hemoglobin 11.6, platelets 293,000. Blood gas revealed pH of 7.30, PO2 is 78, PCO2 60.4 on 35% oxygen. SIGNIFICANT FINDINGS: Sodium on discharge is 137, potassium 3.8, chloride 100, BUN 14, creatinine 0.7. Her lactic acid in the ER was 1.1. Her total bili is 0.2, AST 12, ALT 10, troponin T was negative. She had a procalcitonin which was elevated at 0.77, dropped down to 0.29 on 11/29/2018. Her urine was negative. Influenza was negative in A and B. Her white count on 11/27/2018 was 9000, hemoglobin 11.4. Head CT negative, non-contrast head CT. The CTA chest showed no pulmonary embolism. Right lower lobe consolidation which may represent pneumonia. Right hilar and mediastinal adenopathy which can be further assessed with followup chest CT. In view of her ovarian cancer diagnosis, this will be followed up. Severe emphysema. Severe intrahepatic bile duct dilation. No prior available comparisons. EKG showing sinus tachycardia, some ST depression in V4, V5, and V6, nonspecific. HOSPITAL COURSE: The patient was started on antibiotics. Rocephin and azithromycin. Gradually improved. CONDITION ON DISCHARGE: Improved but still requiring oxygen. Her pulse ox on room air was 90% to 91%; however, when she moved around the bed to get up, it dropped down to 85% and then with walking, she required 4L/min nasal cannula to keep her above 87%. It dropped down to 80% with 2L of O2 on. See the oxygen qualifier. DISCHARGE INSTRUCTIONS: The patient will be discharged to follow up with her family doctor or myself on Tuesday. The discharge medications are azithromycin 500 mg daily x8 pills, Keflex 500 q.i.d. for 40 pills, prednisone 10 mg pills tapered from 40 mg a day for 3 days, 30 mg a day for 3 days, 20 mg a day for 3 days, and 10 mg a day for 3 days. Continue her home medications of Xanax 1 mg b.i.d. p.r.n., Flexeril 10 mg at h.s., Prozac 40 mg daily, ibuprofen 600 mg daily p.r.n., morphine sulfate extended release 60 mg b.i.d. as she was before, nifedipine 60 mg daily, olanzapine 10 mg at h.s., Accupril 40 mg daily, trazodone 300 mg at h.s., oxycodone 50 mg q.4 h. p.r.n., ranitidine 150 mg b.i.d. I instructed her to follow up with her family doctor in [place]. If she cannot follow up with the family doctor, follow up with me in the office on Tuesday at 10 a.m. The patient needs 2L O2 at rest, 4L oxygen with ambulation. See home qualifier at [facility]. [place]
== END 2018-11-29 16:10 | disposition home or self-care (01) | DRG 194 ==
LOC: ER 19:48 → MEDSURG 11-27 01:06
PROVIDERS: ADMIT Internal Medicine; ATTEND Emergency Medicine
DX: J18.9 Pneumonia, unspecified organism (principal); C56.9 Malignant neoplasm of unspecified ovary; R41.0 Disorientation, unspecified; K83.8 Other specified diseases of biliary tract; J43.8 Other emphysema; J44.9 Chronic obstructive pulmonary disease, unspecified; I10 Essential (primary) hypertension; I25.2 Old myocardial infarction; K21.9 Gastro-esophageal reflux disease without esophagitis; F17.210 Nicotine dependence, cigarettes, uncomplicated
CPT/HCPCS: 36600; 70450; 71275; 80053; 81001; 81003; 82375; 82803; 83605; 83880; 84145; 84484; 85027; 85379; 87400; 93005; 93010; 94618; 94640; 94660; 94760; 94761; 96365; 96366; 96374; 96375; 99239; 99285; J0456; J0696; J1650; J2930; J7030; J7050; J7512

== ENCOUNTER 2019-02-23 20:08 | Emergency (ER) | payer BC ==
[2019-02-23] MEDS ORDERED: IPRATROPIUM/ALBUTEROL (0.5MG/3MG) NEB INH ONE (20:30)
[2019-02-23] MEDS ORDERED: AZITHROMYCIN 500 MG TABLET PO ONE (20:32)
[2019-02-23] MEDS ORDERED: METHYLPREDNISOLONE PF 125MG/VIAL IM ONE (20:32)
[2019-02-23 20:38] LABS: ABSOLUTE NEUTROPHIL COUNT 5.26; BASO % 0.3 % (0-6); EOS % 0.9 % (0-6); GRAN % 79.4 % (47-80); HEMATOCRIT 34.6 % (35.0-47.0); HEMOGLOBIN 10.4 gm/dl (11.6-16.0); LYMPH % 12.1 % (16-45); MEAN CELL VOLUME 93.8 fl (81-97); MEAN CORPUSCULAR HGB CONC 30.1 g/dl (32-36); MEAN PLATELET VOLUME 8.5 fl (7.4-10.4); MONO % 7.3 % (0-9); PLATELET COUNT 309 K/uL (130-400); RED BLOOD COUNT 3.69 M/uL (3.80-5.40); RED CELL DISTRIBUTION WIDTH 17.1 % (11.5-14.5); WHITE BLOOD COUNT W/O DIFF 6.6 K/uL (4.2-12.2)
[2019-02-23 20:39] LABS: MEAN CORPUSCULAR HEMOGLOBIN 28.1 pg (27-33)
[2019-02-23] MEDS ORDERED: CEFDINIR 300 MG CAPSULE PO ONE (20:41)
[2019-02-23] MEDS ORDERED: METHYLPREDNISOLONE PF 125MG/VIAL IVP ONE (20:41)
[2019-02-23 20:44] LABS: BLOOD UREA NITROGEN 10 mg/dL (8-23); CREATININE 0.6 mg/dL (0.5-0.9); EST GLOMERULAR FILTRATION RATE > 60 mL/min
[2019-02-23 20:47] LABS: GLUCOSE,RANDOM 174 mg/dL (74-109)
[2019-02-23 20:50] LABS: ALB/GLOB RATIO 0.9 (1.1-1.8); ALBUMIN 3.4 g/dL (4.0-5.0); ALKALINE PHOSPHATASE 82 U/L (35-104); ALT/SGPT 7 U/L (<33); AST/SGOT 13 U/L (10.0-35.0)
[2019-02-23 21:00] LABS: THYROID STIMULATING HORMONE 2.01 uIU/mL (0.270-4.20)
--- NOTE | 2019-02-23 21:21 | Emergency Department Record ---
History of Present Illness - General Chief Complaint: Rapid heartbeat Stated Complaint: RAPID HEART RATE Time Seen by Provider: 02/23/19 20:10 Source: Patient Mode of Arrival: Ambulatory Limitations: No limitations - History of Present Illness Initial Comments: 68 yo female presents with mild cough the last two days. She has had some yellow sputum. No blood in the sputum. She has had pneumonia in the last three months. She has COPD on 2 LNC at home. She occasionally dose her nebulizers but usually less than 4 times a daily. No fever or chills. No leg edema. No nausea, vomiting, diarrhea. She lives with her daughter currently but she was t reated for ovarian cancer in [facility]. No chest pain or pain with inspiration. She is in remission from her ovarian cancer (9 months). She continues to smoke "alot". MD Complaint: Palpitations, Rapid heart beat -: Days(s) Context: Other Arrythmia History: Other Associated Symptoms: Cough - Related Data Previous Rx's Medication Instructions Recorded Prednisone [Prednisone 10Mg] 10 mg PO ASDIR #30 tab 11/29/18 Acetaminophen [Tylenol 500Mg Tab] 1,000 mg PO Q6H PRN tablet 12/27/18 Albuterol Sulfate 0.083% [Neb] 2.5 mg INH RESP.Q4H.WA PRN #2 box 12/27/18 [Albuterol Sulfate] Azithromycin [Zithromax] 250 mg PO DAILY 4 Days #4 tab 12/27/18 Cefdinir 300 mg PO BID 9 Days #18 capsule 12/27/18 Docusate Sodium [Colace] 100 mg PO BID cap 12/27/18 Fluoxetine HCl [Prozac] 40 mg PO DAILY capsule 12/27/18 Fluticasone/Vilanterol 200/25 1 puff INH DAILY #1 inhaler 12/27/18 [Breo Ellipta 200-25 Mcg INH] Oxycodone HCl/Acetaminophen 1 each PO Q8H PRN tablet 12/27/18 [Percocet 10mg/325mg] Quinapril HCl [Accupril] 40 mg PO DAILY tablet 12/27/18 Ranitidine HCl [Zantac] 150 mg PO BID tablet 12/27/18 Azithromycin [Zithromax] 250 mg PO DAILY #4 tablet 02/23/19 Cefdinir 300 mg PO BID #14 capsule 02/23/19 Prednisone [Prednisone 20Mg] 20 mg PO BID #10 tab 02/23/19 Allergies Allergy/AdvReac Type Severity Reaction Status Date / Time diphenhydramine AdvReac FATIGUE Verified 02/23/19 20:14 [From Santiago] Review of Systems Constitutional: Denies: Chills, Fever Eyes: Denies: Eye discharge, Eye pain ENT: Denies: Congestion, Throat pain Respiratory: Reports: Cough, Dyspnea (chronic on home oxygen), Wheezes. Denies: Hemoptysis Cardiovascular: Reports: Palpitations. Denies: Chest pain, Edema, Syncope Endocrine: Reports: Fatigue (chronic) Gastrointestinal: Denies: Abdominal pain, Nausea, Vomiting Genitourinary: Denies: Dysuria, Urgency Musculoskeletal: Denies: Arthralgia, Back pain, Myalgia Skin: Denies: Bruising, Change in color, Rash Neurological: Denies: Headache, Weakness Psychiatric: Denies: Anxiety Hematological/Lymphatic: Denies: Easy bleeding, Easy bruising Past Medical History - SOCIAL HISTORY Smoking Status: Light tobacco smoker (<10/day) - RESPIRATORY Hx Respiratory Disorders: Yes Hx COPD: Yes Hx Pneumonia: Yes - CARDIOVASCULAR Hx Cardio Disorders: Yes Hx Hypertension: Yes - NEURO Hx Neuro Disorders: No - GI Hx GI Disorders: Yes Hx Reflux: Yes Hx Pancreatitis: Yes - Hx Genitourinary Disorders: No - ENDOCRINE Hx Endocrine Disorders: No Hx Diabetes: No Hx Thyroid Disease: No - MUSCULOSKELETAL Hx Musculoskeletal Disorders: Yes - PSYCH Hx Psych Problems: Yes Hx Anxiety: Yes Hx Depression: Yes - HEMATOLOGY/ONCOLOGY Hx Hematology/Oncology Disorders: Yes Hx Cancer: Yes (Ovarian Cancer) Hx Chemotherapy: Yes (08/2018) Hx Radiation Therapy: Yes (08/2018) Family Medical History Hx Cancer: Father, Brother/Sister Hx Diabetes: Brother/Sister Physical Exam - General General Appearance: Alert, Oriented x3, Cooperative, No acute distress Limitations: No limitations - Head Head exam: Atraumatic, Normal inspection - Eye Eye exam: Normal appearance. negative: Conjunctival injection, Scleral icterus - ENT ENT exam: Normal exam, Mucous membranes moist Ear exam: Normal external inspection Nasal Exam: Normal inspection Mouth exam: Normal external inspection - Neck Neck exam: Normal inspection - Respiratory Respiratory exam: Decreased breath sounds (mild), Other (Calm breathing with a relaxed respiratory effort). negative: Accessory muscle use, Prolonged expiratory, Respiratory distress, Rhonchi, Stridor, Wheezes - Cardiovascular Cardiovascular Exam: Regular rate, Normal rhythm, Normal heart sounds Peripheral Pulses: 2+: Radial (R), Radial (L) - GI/Abdominal GI/Abdominal exam: Soft. negative: Tenderness - Rectal Rectal exam: Deferred - exam: Deferred - Extremities Extremities exam: negative: Pedal edema, Tenderness - Back Back exam: Reports: Full ROM. Denies: CVA tenderness (R), CVA tenderness (L) - Neurological Neurological exam: Alert, Oriented X3 - Psychiatric Psychiatric exam: Normal affect, Normal mood - Skin Skin exam: Dry, Intact, Normal color, Warm. negative: Cyanosis, Diaphoretic, Erythema Course - Reevaluation(s) Reevaluation #1: The vitals were reviewed. No acute significant abnormality. EKG #1: 20:13 Rate: 74 Rhythm: sinus Sharon: left Intervals: normal ST segments: normal Prior: 12/23/18 no adverse changes 02/23/19 20:20 02/23/19 20:43 Antibiotics, Duoneb, and Steroids provided 02/23/19 20:45 Stable chronic anemia on the CBC 02/23/19 21:57 Thc CXR was reviewed. Atypical pneumonia vs PVC The results were discussed with the daughter and the patient. The patient was offered OBV. She reports she is not short of breath. Her saturation currently is 96% on her baseline oxygen. She wants to go home. Her HR, BP, RR and saturations are very stable over the course of the visit. They live in proximity to the hospital. They will return for a recheck if any concerns. She does not require additional oxygen or respiratory care that can not be provided at home at this time. I reassured her she may and should return for a recheck if she does not feeling improved in the next 12-24 hours 02/23/19 22:09 Troponin is normal Mild elevation of ProBNP. Likely her current symptoms are COPD with mild early pneumonia not CHF. She has not signs of peripheral edema. I again offered an overnight monitoring but she wants to go home and will reliably return if any concerns. Medical Decision Making - Lab Data Result diagrams: 02/23/19 20:25 02/23/19 20:25 Disposition Disposition: Discharge Clinical Impression: Bronchitis COPD (chronic obstructive pulmonary disease) Qualifiers: COPD type: COPD with acute exacerbation Qualified Code(s): J44.1 - Chronic obstructive pulmonary disease with (acute) exacerbation Disposition: Home, Self-Care Condition: (1) Good Instructions: Chronic Bronchitis (ED) Additional Instructions: Call your doctor for the next available follow up appointment Review this ER visit and the tests performed with your family doctor Return to the ER for a recheck if worse, any new concerns or questions Take the prescriptions provided as directed Prescriptions: Cefdinir 300 mg PO BID #14 capsule Prednisone [Prednisone 20Mg] 20 mg PO BID #10 tab Azithromycin [Zithromax] 250 mg PO DAILY #4 tablet Forms: Patient Portal Access Time of Disposition: 22:11 Quality - Quality Measures Quality Measures: N/A - Blood Pressure Screening Does Patient Have Any of the Following: Active Dx of HTN Blood Pressure Classification: Normal BP Reading Systolic Measurement: 107 Diastolic Measurement: 56 Screening for High Blood Pressure: Patient Exclusion, Hx of HTN [G9744]
--- NOTE | 2019-02-26 21:36 | RADIOLOGY REPORT ---
EXAM: CHEST 2 VIEWS HISTORY: CHEST PAIN. COUGH. TECHNIQUE: Upright PA and lateral views of the chest. COMPARISON: Two-view chest radiographic examination dated 12/23/2018. CTA of the chest dated 12/26/2018. FINDINGS: A right internal jugular [id number] catheter remains in place with its tip in the mid to upper SVC. The heart projects borderline to mildly enlarged. There is borderline pulmonary venous hypertension. Reticular opacity prominence is identified appearing mildly worsened in the interval. Diagnostic considerations include edema or atypical pneumonitis. Minor patchy opacities in each lung base consistent with atelectasis, edema, or infiltrate. No gross lung consolidation, costophrenic angle blunting, or pneumothorax. IMPRESSION: 1. RIGHT INTERNAL JUGULAR [id number] CATHETER REMAINS IN PLACE, UNCHANGED. 2. THE HEART PROJECTS BORDERLINE TO MILDLY ENLARGED WITH BORDERLINE PULMONARY VENOUS HYPERTENSION. 3. RETICULAR OPACITY PROMINENCE IN EACH LUNG, MORE PRONOUNCED IN THE INTERVAL. DIAGNOSTIC CONSIDERATIONS INCLUDE EDEMA OR ATYPICAL PNEUMONITIS. 4. MILD PATCHY OPACITIES IN EACH LUNG BASE CONSISTENT WITH ATELECTASIS, INFILTRATE, OR EDEMA. JOB NUMBER: [id number] [facility]
== END 2019-02-23 22:18 | disposition home or self-care (01) ==
LOC: ER 20:08
DX: J44.1 Chronic obstructive pulmonary disease with (acute) exacerbation (principal); I10 Essential (primary) hypertension; F17.200 Nicotine dependence, unspecified, uncomplicated; R00.0 Tachycardia, unspecified
CPT/HCPCS: 71046; 80053; 83880; 84443; 84484; 85025; 93005; 93010; 93041; 94640; 96374; 99284; J2930

== ENCOUNTER 2019-08-16 21:10 | Observation (INO) | payer BC ==
--- NOTE | 2019-08-16 21:24 | Emergency Department Record ---
History of Present Illness - General Chief Complaint: Cough Stated Complaint: RAHAT Time Seen by Provider: 08/16/19 21:11 Source: Family Mode of Arrival: Wheelchair Limitations: Altered mental status - History of Present Illness Initial comments: 68 yo female with a history of oxygen dependent COPD presents to ED for evaluation of a wet cough and confusion symptoms today. daughter at the bedside reports similar symptoms previously related to pneumonia. Daughter denies known fevers, chills. History is limited from the patient due to confusion. Onset/Timin -: Days(s) Consistency: Constant Improves with: None Worsens with: None Associated Symptoms: Cough Treatments Prior to Arrival: None - [place] Coma Scale Eye Response: (4) Open spontaneously Motor Response: (6) Obeys commands Verbal Response: (5) Oriented [place] Total: 15 - Related Data Previous Rx's Medication Instructions Recorded Acetaminophen [Tylenol 500Mg Tab] 1,000 mg PO Q6H PRN tablet 12/27/18 Albuterol Sulfate 0.083% [Neb] 2.5 mg INH RESP.Q4H.WA PRN #2 box 12/27/18 [Albuterol Sulfate] Docusate Sodium [Colace] 100 mg PO BID cap 12/27/18 Fluoxetine HCl [Prozac] 40 mg PO DAILY capsule 12/27/18 Fluticasone/Vilanterol 200/25 1 puff INH DAILY #1 inhaler 12/27/18 [Breo Ellipta 200-25 Mcg INH] Oxycodone HCl/Acetaminophen 1 each PO Q8H PRN tablet 12/27/18 [Percocet 10mg/325mg] Quinapril HCl [Accupril] 40 mg PO DAILY tablet 12/27/18 Ranitidine HCl [Zantac] 150 mg PO BID tablet 12/27/18 Allergies Allergy/AdvReac Type Severity Reaction Status Date / Time diphenhydramine AdvReac FATIGUE Verified 02/23/19 20:14 [From Benadryl] Review of Systems ROS unobtainable: Due to mental status Respiratory: Reports: Cough Neurological: Reports: Confusion Past Medical History - SOCIAL HISTORY Smoking Status: Light tobacco smoker (<10/day) Alcohol Use: Rare Drug Use: None - RESPIRATORY Hx Respiratory Disorders: Yes Hx COPD: Yes Hx Pneumonia: Yes - CARDIOVASCULAR Hx Cardio Disorders: Yes Hx Hypertension: Yes - NEURO Hx Neuro Disorders: No - GI Hx GI Disorders: Yes Hx Reflux: Yes Hx Pancreatitis: Yes - Hx Genitourinary Disorders: No - ENDOCRINE Hx Endocrine Disorders: No Hx Diabetes: No Hx Thyroid Disease: No - MUSCULOSKELETAL Hx Musculoskeletal Disorders: Yes - PSYCH Hx Psych Problems: Yes Hx Anxiety: Yes Hx Depression: Yes - HEMATOLOGY/ONCOLOGY Hx Hematology/Oncology Disorders: Yes Hx Cancer: Yes (Ovarian Cancer) Hx Chemotherapy: Yes (08/2018) Hx Radiation Therapy: Yes (08/2018) Family Medical History Any Significant Family History?: Yes Hx Cancer: Father, Brother/Sister Hx Diabetes: Brother/Sister Physical Exam - General General Appearance: Alert, Cooperative, Moderate distress Limitations: Altered mental status - Head Head exam: Atraumatic, Normocephalic, Normal inspection Head exam detail: negative: Abrasion, Contusion, Laws's sign, General tendern ess, Hematoma, Laceration - Eye Eye exam: Other (Pinpoint pupils on examination). negative: Conjunctival injection, Periorbital swelling, Periorbital tenderness, Scleral icterus - ENT Ear exam: negative: Auricular hematoma, Auricular trauma Nasal Exam: negative: Active bleeding, Discharge, Dried blood, Foreign body Mouth exam: negative: Drooling, Laceration, Muffled voice, Tongue elevation - Neck Neck exam: Normal inspection. negative: Meningismus, Tenderness - Respiratory Respiratory exam: Decreased breath sounds. negative: Rales, Respiratory distress, Rhonchi, Stridor - Cardiovascular Cardiovascular Exam: Normal rhythm, Normal heart sounds, Tachycardia - GI/Abdominal GI/Abdominal exam: Soft. negative: Rebound, Rigid, Tenderness - Rectal Rectal exam: Deferred - exam: Deferred - Extremities Extremities exam: Normal inspection. negative: Pedal edema, Tenderness - Back Back exam: Denies: CVA tenderness (R), CVA tenderness (L) - Neurological Neurological exam: Altered, Other (Awake, arouses to name, cannot answer questions on examination.) - Psychiatric Psychiatric exam: Normal affect, Normal mood - Skin Skin exam: Normal color. negative: Abrasion Type of lesion: negative: abrasion Course - Reevaluation(s) Reevaluation #1: 08/16/19 21:27 EKG: NSR 97 Borderline axis deviation, normal intervals Non-specific ST-T wave changes. Reevaluation #2: 08/16/19 22:03 Laboratory studies were reviewed and appear grossly unremarkable for an acute process except for the following: Troponin 0.[address] Brain: No acute process CXR: Right sided infusaport No acute infiltrate identified Reevaluation #3: 08/16/19 22:35 Attempted to obtain UA sample, patient spontaneously voided into commode prior to placing hat. Straight cath was unsuccessful for obtaining UA immediately following. Reevaluation #4: 08/16/19 22:54 Patient's family members were updated on all results. Will admit for further evaluation and initiate treatment for CAP at this time given the patient's history and examination. Zosyn and Levaquin ordered to infuse. Patient's daughter is in agreement with the plan for admission (declined transfer for possible specialist consultation) at this time. Will continue to obtain UA following admission. Reevaluation #5: 08/17/19 06:50 Case was discussed with Gianna Lynn NP, will accept admission at this time. Medical Decision Making - Lab Data Result diagrams: 08/16/19 21:20 08/16/19 21:20 Disposition Disposition: Admit Clinical Impression: Elevated troponin, Hypoxia Altered mental status Qualifiers: Altered mental status type: unspecified Qualified Code(s): R41.82 - Altered mental status, unspecified CAP (community acquired pneumonia) Qualifiers: Laterality: unspecified laterality Qualified Code(s): J18.9 - Pneumonia, unspecified organism COPD (chronic obstructive pulmonary disease) Qualifiers: COPD type: unspecified COPD Qualified Code(s): J44.9 - Chronic obstructive pulmonary disease, unspecified Disposition: Still a Patient at [facility] Decision to Admit: Admit from ER Decision to Admit Date: 08/16/19 Decision to Admit Time: 22:57 Condition: (2) Stable Time of Disposition: 22:57 Quality - Quality Measures Quality Measures: N/A - Blood Pressure Screening Does Patient Have Any of the Following: No Blood Pressure Classification: Normal BP Reading Systolic Measurement: 111 Diastolic Measurement: 59 Screening for High Blood Pressure: < Normal BP, F/U Not Required > [G8783]
[2019-08-16 21:30] LABS: ABSOLUTE NEUTROPHIL COUNT 4.37; BASO % 0.2 % (0-6); EOS % 1.7 % (0-6); GRAN % 69.1 % (47-80); HEMATOCRIT 37.8 % (35.0-47.0); HEMOGLOBIN 11.2 gm/dl (11.6-16.0); LYMPH % 18.6 % (16-45); MEAN CELL VOLUME 93.3 fl (81-97); MEAN CORPUSCULAR HGB CONC 29.6 g/dl (32-36); MEAN PLATELET VOLUME 8.8 fl (7.4-10.4); MONO % 10.4 % (0-9); PLATELET COUNT 267 K/uL (130-400); RED BLOOD COUNT 4.05 M/uL (3.80-5.40); RED CELL DISTRIBUTION WIDTH 16.4 % (11.5-14.5); WHITE BLOOD COUNT W/O DIFF 6.3 K/uL (4.2-12.2)
[2019-08-16] MEDS ORDERED: 0.9 % SODIUM CHLORIDE 1000ML 1,000 ML IV SCH (21:30)
[2019-08-16 21:33] LABS: MEAN CORPUSCULAR HEMOGLOBIN 27.6 pg (27-33)
[2019-08-16 21:44] LABS: BLOOD UREA NITROGEN 12 mg/dL (8-23); CREATININE 0.6 mg/dL (0.5-0.9); EST GLOMERULAR FILTRATION RATE > 60 mL/min
[2019-08-16 21:45] LABS: TOTAL PROTEIN 7.9 g/dL (6.6-8.7)
[2019-08-16 21:47] LABS: GLUCOSE,RANDOM 119 mg/dL (74-109)
[2019-08-16 21:49] LABS: ALT/SGPT 19 U/L (<33)
[2019-08-16 21:50] LABS: ALB/GLOB RATIO 1.1 (1.1-1.8); ALBUMIN 4.2 g/dL (4.0-5.0); ALKALINE PHOSPHATASE 66 U/L (35-104); AST/SGOT 45 U/L (10.0-35.0)
[2019-08-16 21:55] LABS: AMMONIA < 10 umol/L (11.0-51.0)
--- NOTE | 2019-08-16 22:00 | CT SCAN REPORT ---
EXAMINATION: CT Head without Contrast EXAM DATE: 08/16/2019 9:55 PM TECHNIQUE: Routine axial CT was acquired from skull base through vertex without contrast. Sagittal an d coronal isotropic reformatted images are reviewed. INDICATION: confusion, history of pneumonia. COMPARISON: 12/23/2018 CT ENCOUNTER: Not applicable HAND DOMINANCE: Unknown. FINDINGS: No intracranial fluid collection or hemorrhage. Brain attenuation and configuration are within normal limits. Age-appropriate CSF spaces. No significant extraneous finding. IMPRESSION: Normal intracranial exam Dictated by: Selvin King MD on 08/16/2019 9:56 PM. .
--- NOTE | 2019-08-16 22:38 | RADIOLOGY REPORT ---
EXAMINATION: Two View Chest Radiographs EXAM DATE: 08/16/2019 10:12 PM TECHNIQUE: Frontal and lateral views INDICATION: confusion, history of pneumonia COMPARISON: None ENCOUNTER: Not applicable FINDINGS: Cardiomegaly. Right [id number] catheter. No infiltrate or effusion. IMPRESSION: Cardiomegaly. No acute process Dictated by: Meme Goldstein DO on 08/16/2019 10:36 PM. .
[2019-08-16] MEDS ORDERED: PIPERACILLIN SODIUM/TAZOBACTAM 4.5 GM in 0.9 % SODIUM CHLORIDE 100ML 100 ML IVPB ONE (22:53)
[2019-08-16] MEDS ORDERED: LEVOFLOXACIN/D5W 750 MG/150 ML BAG IVPB ONE (22:53)
[2019-08-17] MEDS ORDERED: ACETAMINOPHEN 500 MG TABLET PO PRN (00:11)
[2019-08-17] MEDS ORDERED: LEVOFLOXACIN/D5W 750 MG/150 ML BAG IVPB SCH ×2 (00:11→23:00)
[2019-08-17] MEDS ORDERED: PIPERACILLIN SODIUM/TAZOBACTAM 4.5 GM in 0.9 % SODIUM CHLORIDE 100ML 100 ML IVPB SCH ×2 (00:11→08:00)
[2019-08-17] MEDS ORDERED: 0.9 % SODIUM CHLORIDE 1000ML 1,000 ML IV ONE (00:11)
[2019-08-17] MEDS ORDERED: ALBUTEROL SULFATE (0.083%) 2.5 MG/3 ML NEB INH PRN (00:11)
[2019-08-17] MEDS: NICOTINE 21 MG/24 HOUR PATCH TD SCH ×2 (00:48→09:32)
[2019-08-17 06:14] LABS: URINE APPEARANCE CLEAR; URINE BILIRUBIN NEGATIVE (NEGATIVE); URINE BLOOD MODERATE (NEGATIVE); URINE COLOR YELLOW; URINE GLUCOSE (UA) NEGATIVE (NEGATIVE); URINE KETONE NEGATIVE (NEGATIVE); URINE LEUKOCYTE ESTERASE NEGATIVE (NEGATIVE); URINE NITRITE NEGATIVE (NEGATIVE); URINE PROTEIN NEGATIVE (NEGATIVE); URINE UROBILINOGEN 0.2 E.U./dL (0.20 - 1.00)
[2019-08-17 06:24] LABS: URINE EPITHELIAL CELLS 0 - 2 (FEW); URINE WBC 0 - 2 (0-2/hpf)
[2019-08-17 06:25] LABS: URINE BACTERIA FEW
[2019-08-17] MEDS: IPRATROPIUM/ALBUTEROL (0.5MG/3MG) NEB INH SCH ×3 (07:36→15:34)
--- NOTE | 2019-08-17 09:25 | History & Physical ---
History of Present Illness - Date of Service Date of Service for History & Physical: 08/17/19 - History of Present Illness Admitting Diagnosis: Altered mental status. Hypoxia. Possible CAP History of Present Illness: 68 year old female patient brought in to ED by family members for worsening confusion throughout the day with a wet, harsh cough. Patient has a history of COPD and is oxygen dependent at home. Daughter reports similar symptoms in the past when patient has had pneumonia. Denies any fever, chills, or chest pain. Patient has a history of ovarian cancer which is currently in remission, several back surgeries and resulting chronic back pain, and anxiety. Patient is on several opiates chronically, including Morphine ER 100mg BID and Oxycodone 15mg q4h for chronic back pain. PCP: Dr. Derrick Bell ED Course: CXR: cardiomegaly, no acute process head CT: no acute intracranial findings UA, CBC, CMP unremarkable Ammonia neg Trop 0.02 EKG: NSR 97, non-specific ST-T wave changes 08/17/19: Patient oriented to self, place, and month. Resting comfortably in bed, no acute distress. Continued confusion from baseline per daughter. No neuro deficits noted on exam. Travel Screening - Travel/Exposure Within Last 30 Days Have you traveled within the last 30 days?: No - Travel/Exposure Within Last Year Have you traveled outside the [place] in the last year?: No - Additonal Travel Details Have you been exposed to anyone with a communicable illness?: No - Travel Symptoms Symptom Screening: None Review of Systems Reviewed: No additional complaints except as noted below Constitutional: Reports: As per HPI Eyes: Reports: As per HPI ENT: Reports: As per HPI Respiratory: Reports: As per HPI, Cough Cardiovascular: Reports: As per HPI Endocrine: Reports: As per HPI Gastrointestinal: Reports: As per HPI Genitourinary: Reports: As per HPI Musculoskeletal: Reports: As per HPI Skin: Reports: As per HPI Neurological: Reports: As per HPI, Confusion Psychiatric: Reports: As per HPI Hematological/Lymphatic: Reports: As per HPI Past Medical History - SOCIAL HISTORY Smoking Status: Light tobacco smoker (<10/day) Alcohol Use: Rare Drug Use: None - RESPIRATORY Hx Respiratory Disorders: Yes Hx COPD: Yes Hx Pneumonia: Yes - CARDIOVASCULAR Hx Cardio Disorders: Yes Hx Hypertension: Yes - NEURO Hx Neuro Disorders: No - GI Hx GI Disorders: Yes Hx Reflux: Yes Hx Pancreatitis: Yes - Hx Genitourinary Disorders: No - ENDOCRINE Hx Endocrine Disorders: No Hx Diabetes: No Hx Thyroid Disease: No - MUSCULOSKELETAL Hx Musculoskeletal Disorders: Yes - PSYCH Hx Psych Problems: Yes Hx Anxiety: Yes Hx Depression: Yes - HEMATOLOGY/ONCOLOGY Hx Hematology/Oncology Disorders: Yes Hx Cancer: Yes (Ovarian Cancer) Hx Chemotherapy: Yes (08/2018) Hx Radiation Therapy: Yes (08/2018) Family Medical History Any Significant Family History?: Yes Hx Cancer: Father, Brother/Sister Hx Diabetes: Brother/Sister H&P Meds/Allergies - Allergies Allergies: Allergies Allergy/AdvReac Type Severity Reaction Status Date / Time diphenhydramine AdvReac FATIGUE Verified 02/23/19 20:14 [From Benadryl] - Home Medications Previous Rx's Medication Instructions Recorded Acetaminophen [Tylenol 500Mg Tab] 1,000 mg PO Q6H PRN tablet 12/27/18 Albuterol Sulfate 0.083% [Neb] 2.5 mg INH RESP.Q4H.WA PRN #2 box 12/27/18 [Albuterol Sulfate] Docusate Sodium [Colace] 100 mg PO BID cap 12/27/18 Fluoxetine HCl [Prozac] 40 mg PO DAILY capsule 12/27/18 Fluticasone/Vilanterol 200/25 1 puff INH DAILY #1 inhaler 12/27/18 [Breo Ellipta 200-25 Mcg INH] Ranitidine HCl [Zantac] 150 mg PO BID tablet 12/27/18 - Active Medications Active Medications: Current Medications Acetaminophen (Tylenol 500mg Tab) 1,000 mg PO Q6H PRN PRN Reason: PAIN - MILD(1-4)/FEVER Albuterol Sulfate (Albuterol Sulfate) 2.5 mg INH RESP.Q2H PRN PRN Reason: DIFFICULTY IN BREATHING Albuterol/Ipratropium (Duoneb) 3 ml INH RESP.Q4H.WA DENA Last Admin: 08/17/19 07:36 Dose: Not Given Documented by: Fluoxetine HCl (Prozac) 40 mg PO DAILY DEAN Fluoxetine HCl (Prozac) 40 mg PO DAILY DENA Sodium Chloride () 1,000 mls @ 0 mls/hr IV .Q0M DENA Last Infusion: 08/17/19 00:00 Dose: Infused Documented by: Sodium Chloride () 1,000 mls @ 100 mls/hr IV .Q10H ONE Stop: 08/17/19 10:10 Last Admin: 08/17/19 00:44 Dose: 100 mls/hr Documented by: Levofloxacin/Dextrose (Levaquin 750mg Ivpb) 750 mg in 150 mls @ 125 mls/hr IVPB Q24H [facility] Stop: 08/22/19 23:01 Nicotine (Nicotine 21mg) 1 patch TD 0900 [facility] Last Admin: 08/17/19 00:48 Dose: 1 patch Documented by: Physical Exam - Vital Signs Vital Signs: Vital Signs - Last 24 Hrs Temp Pulse Pulse Pulse Resp BP BP 08/17/19 08:47 18 08/17/19 06:00 99.0 F 82 18 141/72 08/17/19 00:26 73 18 08/17/19 00:11 99.2 F 73 73 16 111/59 08/17/19 00:01 79 20 111/59 08/16/19 22:45 99.3 F 08/16/19 22:39 86 20 127/66 08/16/19 21:35 92 H 20 08/16/19 21:15 106 H 20 137/103 Pulse Ox 08/17/19 08:47 98 08/17/19 06:00 95 08/17/19 00:26 08/17/19 00:11 96 08/17/19 00:01 94 L 08/16/19 22:45 08/16/19 22:39 94 L 08/16/19 21:35 94 L 08/16/19 21:15 88 L - General General Appearance: Alert, Cooperative, No acute distress Limitations: Altered mental status - Head Head exam: Atraumatic, Normocephalic, Normal inspection Head exam detail: negative: Abrasion, Contusion, Laws's sign, General tenderness, Hematoma, Laceration - Eye Eye exam: Other (Pinpoint pupils on examination). negative: Conjunctival injection, Periorbital swelling, Periorbital tenderness, Scleral icterus - ENT ENT exam: Mucous membranes moist, Normal external ear exam Ear exam: negative: Auricular hematoma, Auricular trauma Nasal Exam: negative: Active bleeding, Discharge, Dried blood, Foreign body Mouth exam: negative: Drooling, Laceration, Muffled voice, Tongue elevation - Neck Neck exam: Normal inspection. negative: Meningismus, Tenderness - Respiratory Respiratory exam: Decreased breath sounds. negative: Rales, Respiratory distress, Rhonchi, Stridor - Cardiovascular Cardiovascular Exam: Regular rate, Normal rhythm, Normal heart sounds Peripheral Pulses: 2+: Radial (R), Radial (L), Dorsalis Pedis (R), Dorsalis Pedis (L) - GI/Abdominal GI/Abdominal exam: Soft. negative: Rebound, Rigid, Tenderness - Rectal Rectal exam: Deferred - exam: Deferred - Extremities Extremities exam: Normal inspection. negative: Pedal edema, Tenderness - Back Back exam: Denies: CVA tenderness (R), CVA tenderness (L) - Neurological Neurological exam: Altered, Other (answers questions spontaneously, not oriented to year or situation) - Psychiatric Psychiatric exam: Normal affect, Normal mood - Skin Skin exam: Normal color. negative: Abrasion Type of lesion: negative: abrasion Results - Labs Result Diagrams: 08/16/19 21:20 08/16/19 21:20 Labs Last 24 Hours: Laboratory Results - last 24 hr 08/16/19 08/16/19 08/17/19 21:20 21:20 06:00 WBC 6.3 RBC 4.05 Hgb 11.2 L Hct 37.8 MCV 93.3 MCH 27.6 MCHC 29.6 L RDW 16.4 H Plt Count 267 MPV 8.8 Gran % 69.1 Lymphocytes % 18.6 Monocytes % 10.4 H Eosinophils % 1.7 Basophils % 0.2 Absolute Neutrophils 4.37 Sodium 138 Potassium 3.9 Chloride 98 Carbon Dioxide 30.0 H Anion Gap 10.0 BUN 12 Creatinine 0.6 Estimated GFR > 60 Random Glucose 119 H Calcium 9.3 Total Bilirubin 0.20 AST 45 H ALT 19 Alkaline Phosphatase 66 Ammonia < 10 L Troponin T 0.022 H Total Protein 7.9 Albumin 4.2 Globulin 3.7 Albumin/Globulin Ratio 1.1 Urine Color Yellow Urine Appearance Clear Urine pH 6.0 Ur Specific [place] 1.025 Urine Protein Negative Urine Glucose (UA) Negative Urine Ketones Negative Urine Blood Moderate Urine Nitrite Negative Urine Bilirubin Negative Urine Urobilinogen 0.2 Ur Leukocyte Esterase Negative Urine RBC 7 - 10 Urine WBC 0 - 2 Ur Epithelial Cells 0 - 2 Urine Bacteria Few 08/17/19 06:13 WBC RBC Hgb Hct MCV MCH MCHC RDW Plt Count MPV Gran % Lymphocytes % Monocytes % Eosinophils % Basophils % Absolute Neutrophils Sodium Potassium Chloride Carbon Dioxide Anion Gap BUN Creatinine Estimated GFR Random Glucose Calcium Total Bilirubin AST ALT Alkaline Phosphatase Ammonia Troponin T 0.012 H Total Protein Albumin Globulin Albumin/Globulin Ratio Urine Color Urine Appearance Urine pH Ur Specific [place] Urine Protein Urine Glucose (UA) Urine Ketones Urine Blood Urine Nitrite Urine Bilirubin Urine Urobilinogen Ur Leukocyte Esterase Urine RBC Urine WBC Ur Epithelial Cells Urine Bacteria - Imaging and Cardiology CT scan - head Status: Report reviewed VTE H&P Assessment - Risk for VTE Risk for VTE: Yes Risk Level: Moderate Risk Assessment Date: 08/17/19 Risk Assessment Time: 11:43 VTE Orders Placed or Will Be Placed: Yes Plan - Inpatient Certification Inpatient Certification: Admit to inpatient care: Based on my medical assessment, after consideration of patient's risk factors (age, co-morbidities and patient presenting symptoms and acuity), I expect that this patient will remain in the hospital greater than or equal to two midnights and that the services needed warrant inpatient care because: Patient Risk Factors: [age, confusion, COPD, home oxygen dependent] Estimated length of stay: The patient may reasonably be expected to be discharged or transferred to a hospital within 36-96 hours after admission to [facility]. Services needed: [antibiotics, night monitor, serial labs, IV fluids] Post hospital care (if known): [] I certify that my determination is in accordance with my understanding of Medicare requirements for reasonable and necessary inpatient services. 08/17/19 11:43 - Detailed Diagnosis and Plan (1) Altered mental status Current Visit: Yes Status: Acute Qualifiers: Altered mental status type: unspecified Qualified Code(s): R41.82 - Altered mental status, unspecified Base Code: R41.82 - ALTERED MENTAL STATUS, UNSPECIFIED Comment: 08/17/19: - Altered LOC from baseline, no neuro deficits - Head CT: no acute findings - CXR: No acute process - UA, CBC, CMP, ammonia unremarkable - Troponin 0.021, 0.012 - ABG: pCO2 49, HC03 27, pH 7.36, at patient's baseline - ETOH <0.01 - Urine drug screen positive for opiates, methadone, oxycodone, and marijuana - [employer] prescription drug use: Morphine ER 100mg BID, Oxycodone 15mg q4h, Xanax 1mg BID, Trazadone 300mg qhs, Zyprexa 10mg qhs - Confusion caused by reported hypoxemia by family vs overmedicated - conveyor monitor, VS - Continue to monitor, decreasing opiate use until confusion clears (2) COPD with exacerbation Current Visit: Yes Status: Acute Base Code: J44.1 - CHRONIC OBSTRUCTIVE PULMONARY DISEASE W (ACUTE) EXACERBATION Comment: 08/17/19: - CXR: No acute findings - Levaquin and Zosyn started in ED for possible PNA - Afebrile - Continue supplemental oxygen at 2L per home use - Continue with Breo, supplemental oxygen, and Levaquin at this time (3) Chronic pain Current Visit: No Status: Acute Base Code: G89.29 - OTHER CHRONIC PAIN Comment: 08/17/19: - Daugther reports last dose of pain medication 0600 08/16/19 - Patient now asking for pain medication - Home dose Morphine 100mg Q12h, Oxycodone 15mg q4h - Restart Morphine 90mg Q12H at this time -pt tolerating decreased dosing of pain medication, moving in bed with no assistance, up with assist -PT eval today -continue Morphine 60mg BID with percocet 10mg q4hr PRN 12/25/18: - Pain 5/10 in severity. - Hx of chronic low back pain, s/p lumbar laminectomy in 1988. - S/P recent chemo/radiation for ovarian cancer. - Percocet 10mg 4hr PRN, Morphine Sulfate 100mg Q12H at home. Orderd Morphine 60mg BID. (4) DVT prophylaxis Current Visit: No Status: Acute Base Code: [id number] - Comment: 08/17/19: - Lovenox 40mg SQ QD (5) Full code status Current Visit: No Status: Acute Base Code: Z78.9 - OTHER SPECIFIED HEALTH STATUS Comment: 08/17/19: - Full code status.
[2019-08-17 09:39] LABS: AMPHETAMINE SCREEN URINE NOT DETECTED; BARBITURATE SCREEN URINE NOT DETECTED; BENZODIAZEPINE SCREEN URINE NOT DETECTED; COCAINE SCREEN URINE NOT DETECTED; METHADONE SCREEN URINE DETECTED; METHAMPHETAMINE SCREEN NOT DETECTED; OPIATE SCREEN URINE DETECTED; OXYCODONE SCREEN URINE DETECTED; PROPOXYPHENE SCREEN URINE NOT DETECTED; THC SCREEN URINE DETECTED; TRICYCLIC ANTIDEPRESSANT SCRN NOT DETECTED
[2019-08-17 09:46] LABS: PHENCYCLIDINE SCREEN URINE NOT DETECTED
[2019-08-17] MEDS ORDERED: FLUOXETINE HCL 20 MG CAPSULE PO SCH ×2 (10:00)
[2019-08-17] MEDS ORDERED: BREO (FLUTICASONE/VILANTEROL) 200MCG/25MCG INHALER INH SCH (10:00)
[2019-08-17] MEDS ORDERED: MORPHINE SULFATE 30MG TABLET.ER PO SCH (10:30)
[2019-08-17 10:54] LABS: ARTERIAL BLOOD GAS BASE EXCESS 2.2 mmol/L (-2 - 3); ARTERIAL BLOOD GAS HCO3 27.2 mmol/L (18-23); ARTERIAL BLOOD GAS PCO2 49.7 mmHg (35-48); ARTERIAL BLOOD GAS pH 7.36 (7.35-7.45)
[2019-08-17 10:55] LABS: ALLEN TEST PASS
[2019-08-17 14:17] LABS: ABSOLUTE NEUTROPHIL COUNT 3.89; BASO % 0.2 % (0-6); EOS % 1.6 % (0-6); GRAN % 70.9 % (47-80); HEMATOCRIT 32.5 % (35.0-47.0); HEMOGLOBIN 9.2 gm/dl (11.6-16.0); LYMPH % 16.6 % (16-45); MEAN CELL VOLUME 94.8 fl (81-97); MEAN CORPUSCULAR HEMOGLOBIN 26.8 pg (27-33); MEAN PLATELET VOLUME 8.1 fl (7.4-10.4); MONO % 10.7 % (0-9); PLATELET COUNT 207 K/uL (130-400); RED BLOOD COUNT 3.43 M/uL (3.80-5.40); WHITE BLOOD COUNT W/O DIFF 5.5 K/uL (4.2-12.2)
[2019-08-17 14:28] LABS: MEAN CORPUSCULAR HGB CONC 28.3 g/dl (32-36); RED CELL DISTRIBUTION WIDTH 16.4 % (11.5-14.5)
[2019-08-17 14:34] LABS: BLOOD UREA NITROGEN 9 mg/dL (8-23); CREATININE 0.6 mg/dL (0.5-0.9); EST GLOMERULAR FILTRATION RATE > 60 mL/min; GLUCOSE,RANDOM 109 mg/dL (74-109)
--- NOTE | 2019-08-17 15:41 | Discharge Summary ---
Providers Discharge Summary Date: 08/17/19 Date of admission: 08/16/19 23:57 Expected Date of Discharge: 08/17/19 Attending physician: DERIAN LAM Physical Exam - Vital Signs Vital Signs: Vital Signs - Last 24 Hrs Temp Pulse Pulse Pulse Resp BP BP 08/17/19 14:00 99.1 F 83 16 145/88 08/17/19 09:33 92 H 18 08/17/19 09:00 80 18 08/17/19 08:47 18 08/17/19 08:20 98.3 F 99 H 20 166/70 08/17/19 06:00 99.0 F 82 18 141/72 08/17/19 00:26 73 18 08/17/19 00:11 99.2 F 73 73 16 111/59 08/17/19 00:01 79 20 111/59 08/16/19 22:45 99.3 F 08/16/19 22:39 86 20 127/66 08/16/19 21:35 92 H 20 08/16/19 21:15 106 H 20 137/103 Pulse Ox 08/17/19 14:00 95 08/17/19 09:33 98 08/17/19 09:00 08/17/19 08:47 98 08/17/19 08:20 98 08/17/19 06:00 95 08/17/19 00:26 08/17/19 00:11 96 08/17/19 00:01 94 L 08/16/19 22:45 08/16/19 22:39 94 L 08/16/19 21:35 94 L 08/16/19 21:15 88 L - General General Appearance: Alert, Cooperative, No acute distress Limitations: Altered mental status - Head Head exam: Atraumatic, Normocephalic, Normal inspection Head exam detail: negative: Abrasion, Contusion, Laws's sign, General tenderness, Hematoma, Laceration - Eye Eye exam: Other (Pinpoint pupils on examination). negative: Conjunctival injection, Periorbital swelling, Periorbital tenderness, Scleral icterus - ENT ENT exam: Mucous membranes moist, Normal external ear exam Ear exam: negative: Auricular hematoma, Auricular trauma Nasal Exam: negative: Active bleeding, Discharge, Dried blood, Foreign body Mouth exam: negative: Drooling, Laceration, Muffled voice, Tongue elevation - Neck Neck exam: Normal inspection. negative: Meningismus, Tenderness - Respiratory Respiratory exam: Decreased breath sounds. negative: Rales, Respiratory distress, Rhonchi, Stridor - Cardiovascular Cardiovascular Exam: Regular rate, Normal rhythm, Normal heart sounds Peripheral Pulses: 2+: Radial (R), Radial (L), Dorsalis Pedis (R), Dorsalis Pedis (L) - GI/Abdominal GI/Abdominal exam: Soft. negative: Rebound, Rigid, Tenderness - Rectal Rectal exam: Deferred - exam: Deferred - Extremities Extremities exam: Normal inspection. negative: Pedal edema, Tenderness - Back Back exam: Denies: CVA tenderness (R), CVA tenderness (L) - Neurological Neurological exam: Altered, Other (answers questions spontaneously, not oriented to year or situation) - Psychiatric Psychiatric exam: Normal affect, Normal mood - Skin Skin exam: Normal color. negative: Abrasion Type of lesion: negative: abrasion Hospitalization - Hospitalization Admission Diagnosis: Altered mental status. Hypoxia. Possible CAP - Problem List/Discharge Diagnosis (1) Altered mental status Status: Acute Discharge Diagnosis: Altered mental status type: disorientation Qualified Code(s): R41.0 - Disorientation, unspecified Base Code: R41.82 - ALTERED MENTAL STATUS, UNSPECIFIED Comment: 08/17/19: - Altered LOC has improved, no neuro deficits - Head CT: no acute findings - CXR: No acute process - UA, CBC, CMP, ammonia unremarkable - Troponin 0.021, 0.012, <0.010 - ABG: pCO2 49, HC03 27, pH 7.36, at patient's baseline - ETOH <0.01 - Urine drug screen positive for opiates, methadone, oxycodone, and marijuana - [employer] prescription drug use: Morphine ER 100mg BID, Oxycodone 15mg q4h, Xanax 1mg BID, Trazadone 300mg qhs, Zyprexa 10mg qhs - Confusion caused by reported hypoxemia by family vs overmedicated - library monitor: no acute events - Encouraged patient to discuss decreasing medications with PCP, as she may be overmedicated (2) COPD with exacerbation Status: Acute Base Code: J44.1 - CHRONIC OBSTRUCTIVE PULMONARY DISEASE W (ACUTE) EXACERBATION Comment: 08/17/19: - CXR: No acute findings - Levaquin and Zosyn started in ED for possible PNA, DC Zosyn. Continue Levaquin x 5 doses - Afebrile - Continue supplemental oxygen at 2L per home use - Continue with Breo, supplemental oxygen, and Levaquin at this time (3) Chronic pain Status: Acute Base Code: G89.29 - OTHER CHRONIC PAIN Comment: 08/17/19: - Daugther reports last dose of pain medication 0600 08/16/19 - Patient now asking for pain medication - Urine drug screen positive for oxycodone, opiates, methadone, and marijuana - Home dose Morphine 100mg Q12h, Oxycodone 15mg q4h - Restart Morphine 90mg Q12H at this time - Encouraged patient to only take Percocet PRN (4) Elevated troponin Status: Acute Base Code: R79.89 - OTHER SPECIFIED ABNORMAL FINDINGS OF BLOOD CHEMISTRY Comment: 08/17/19: - Troponin 0.02, 0.01, <0.01 - Denies chest pain, shortness of breath, or any other cardiac symptoms - No events on cardiac tech - No acute EKG changes (5) DVT prophylaxis Status: Acute Base Code: [id number] - Comment: 08/17/19: - Lovenox 40mg SQ QD (6) Full code status Status: Acute Base Code: Z78.9 - OTHER SPECIFIED HEALTH STATUS Comment: 08/17/19: - Full code status. - Hospitalization Course Disposition: Home, Self-Care Hospital Course: 68 year old female patient brought in to ED by family members for worsening confusion throughout the day with a wet, harsh cough. Patient has a history of COPD and is oxygen dependent at home. Daughter reports similar symptoms in the past when patient has had pneumonia. Denies any fever, chills, or chest pain. Patient has a history of ovarian cancer which is currently in remission, several back surgeries and resulting chronic back pain, and anxiety. Patient is on several opiates chronically, including Morphine ER 100mg BID and Oxycodone 15mg q4h for chronic back pain. PCP: Dr. Derrick Bell ED Course: CXR: cardiomegaly, no acute process head CT: no acute intracranial findings UA, CBC, CMP unremarkable Ammonia neg Trop 0.02 EKG: NSR 97, non-specific ST-T wave changes 11/29/19: Patient oriented to self, place, and month. Resting comfortably in bed, no acute distress. Continued confusion from baseline per daughter. No neuro deficits noted on exam. UPDATE: Patient's confusion improving, no acute changes in CBC or BMP. Encouraged patient to discuss decreasing overall medications with PCP, as this may be leading to her confusion. Continue Levaquin x 5 doses due to COPD exacerbation. Procedures: Imaging and X-Rays 08/16/19 21:19 CHEST 2 VIEWS [RAD] Stat HEAD WO CONTRAST [CT] Stat Cardiology Procedures 08/16/19 21:11 EKG NOW 08/17/19 00:11 Delivery Driver .Continuous Abnormal Labs: Abnormal Lab Results 08/16/19 08/16/19 08/17/19 Range/Units 21:20 21:20 06:13 RBC (3.80-5.40) M/uL Hgb 11.2 L (11.6-16.0) gm/dl Hct (35.0-47.0) % MCH (27-33) pg MCHC 29.6 L (32-36) g/dl RDW 16.4 H (11.5-14.5) % Monocytes % 10.4 H (0-9) % pCO2 (35-48) mmHg HCO3 (18-23) mmol/L Carbon Dioxide 30.0 H (22-29) mmol/L Random Glucose 119 H (74-109) mg/dL Calcium (8.8-10.2) mg/dL AST 45 H (10.0-35.0) U/L Ammonia < 10 L (11.0-51.0) umol/L Troponin T 0.022 H 0.012 H (0-0.010) ng/mL 08/17/19 08/17/19 08/17/19 Range/Units 10:46 14:04 14:04 RBC 3.43 L (3.80-5.40) M/uL Hgb 9.2 L (11.6-16.0) gm/dl Hct 32.5 L (35.0-47.0) % MCH 26.8 L (27-33) pg MCHC 28.3 L (32-36) g/dl RDW 16.4 H (11.5-14.5) % Monocytes % 10.7 H (0-9) % pCO2 49.7 H (35-48) mmHg HCO3 27.2 H (18-23) mmol/L Carbon Dioxide 32.0 H (22-29) mmol/L Random Glucose (74-109) mg/dL Calcium 8.6 L (8.8-10.2) mg/dL AST (10.0-35.0) U/L Ammonia (11.0-51.0) umol/L Troponin T (0-0.010) ng/mL Condition at Discharge: (2) Stable Discharge Medications - Discharge Medications Prescriptions: Levofloxacin [Levaquin] 750 mg PO DAILY #4 tab Home Medications: Ambulatory Orders Alprazolam 1 tab PO BID PRN 11/26/18 [Last Taken 1 Day Ago ~12/22/18] Cyclobenzaprine HCl [Flexeril] 10 mg PO QHS 11/26/18 [Last Taken 1 Day Ago ~12/22/18] Ibuprofen [Ibu] 600 mg PO DAILY 11/26/18 [Last Taken 1 Day Ago ~12/22/18] Olanzapine 10 mg PO QHS 11/26/18 [Last Taken 1 Day Ago ~12/22/18] Trazodone HCl 300 mg PO QHS 11/26/18 [Last Taken 1 Day Ago ~12/22/18] Morphine Sulfate [Morphine Sulfate ER] 100 mg PO BID 12/23/18 [Last Taken 1 Day Ago ~12/22/18] Acetaminophen [Tylenol 500Mg Tab] 1,000 mg PO Q6H PRN tablet 12/27/18 [Last Taken Unknown] Albuterol Sulfate 0.083% [Neb] [Albuterol Sulfate] 2.5 mg INH RESP.Q4H.WA PRN #2 box 12/27/18 [Last Taken Unknown] Docusate Sodium [Colace] 100 mg PO BID cap 12/27/18 [Last Taken Unknown] Fluoxetine HCl [Prozac] 40 mg PO DAILY capsule 12/27/18 [Last Taken Unknown] Fluticasone/Vilanterol 200/25 [Breo Ellipta 200-25 Mcg INH] 1 puff INH DAILY #1 inhaler 12/27/18 [Last Taken Unknown] Ranitidine HCl [Zantac] 150 mg PO BID tablet 12/27/18 [Last Taken Unknown] Levofloxacin [Levaquin] 750 mg PO DAILY #4 tab 08/17/19 [Last Taken Unknown] Oxycodone HCl 15 mg PO Q4H PRN 08/17/19 [Last Taken Unknown] Discharge Plan - Discharge Instructions Activity at Discharge: Increase Activity as Tolerated Diet at Discharge: Advance to Usual Diet Instructions: Levofloxacin (By mouth), Community Acquired Pneumonia (DC) Additional Instructions: - Your next dose of antibiotics is due tonight - Talk with your Primary Care Physician (PCP) to discuss decreasing your medications, as this may be leading to episodes of confusion - Take only one of your night time medications, either Trazadone or Zyprexa - Only take the Anxiety medication and Percocet as needed - Follow-up with your PCP in 10-14 days Quality Measures - Quality Measures Quality Measures: Advance Directives, Documentation of Current Medications in Medical Record, Elder Maltreatment Screen and Follow-Up Plan, Screening for High Blood Pressure and F/U Documented - Current Medications Quality Measure: Measure #130: Documentation of Current Medications Documentation of Current Medications: <Current Medications Documented/Reviewed> [[id number]] - Blood Pressure Screening Quality Measure: Screening for High Blood Pressure and Follow-Up Documented Does Patient Have Any of the Following: No Blood Pressure Classification: Normal BP Reading Systolic Measurement: 111 Diastolic Measurement: 59 Screening for High Blood Pressure: < Normal BP, F/U Not Required > [V0748] - Advance Directives Quality Measure: Measure #47: Care Plan Advance Directives Established: No Advance Directives Information Provided To Patient: Yes Advance Directives on File: No Living Will: No Power of Research Biostatistician: No Advance Care Planning: <Care Plan/Decision Maker Not Decided; Discussed & Docume nted> [5041F] - Elder Abuse Suspicion Index Screening: Elder Abuse Suspicion Index Screening Rely on people for bathing, dressing, shopping, banking, etc: No Prevented from getting food, clothes, medication, etc: No Made to feel shamed or threatened by someone: No Forced to sign papers or use money against will: No Feel afraid, touched in ways not wanted or hurt physically: No Poor eye contact, withdrawn, malnourished, cuts or bruises: No Screening Result: Negative result EASI Reference Information: Jackie BARNES, Kevin C, Chuy D, Be Meyer.Development and validation of a tool to assist physicians identification of elder abuse: The Elder Abuse Suspicion Index (EASI ). Journal of Elder Abuse and Neglect, 2008; 20 (3): 276-300. - Elder Maltreatment Screen Quality Measures: Elder Maltreatment Screen and Follow-Up Plan Elder Maltreatment Screen: <Negative, No Follow-Up Plan Required> [G8734]
[2019-08-17] MEDS ORDERED: TRAZODONE 50 MG TABLET PO SCH (22:00)
[2019-08-18] MEDS ORDERED: ENOXAPARIN 40 MG/0.4 ML SYR SQ SCH (10:00)
== END 2019-08-17 18:18 | disposition home or self-care (01) ==
LOC: ER 21:10 → MEDSURG 23:57 → INTOOBSV 23:57
PROVIDERS: ADMIT Internal Medicine; ATTEND Internal Medicine
DX: R41.82 Altered mental status, unspecified (principal); J44.1 Chronic obstructive pulmonary disease with (acute) exacerbation; R09.02 Hypoxemia; J18.9 Pneumonia, unspecified organism; G89.29 Other chronic pain; R79.89 Other specified abnormal findings of blood chemistry; I10 Essential (primary) hypertension; K21.9 Gastro-esophageal reflux disease without esophagitis; F17.210 Nicotine dependence, cigarettes, uncomplicated; Z99.81 Dependence on supplemental oxygen; Z85.43 Personal history of malignant neoplasm of ovary
CPT/HCPCS: 82140; 85025 ×2; 82375; 80305; 80048; 80053; 81001; 82803; 84484 ×2; 71046; 70450; 94640; 36600; 94761; 93005 ×2; 93010 ×2; G0378 ×2; G0480; J1956; 80320; 96365; 96374; 99220; 99285; J2543; J7030